=== PATIENT | female | born 1990 | race American Indian/Alaskan Native ===

== ENCOUNTER 2018-07-23 13:47 | Emergency (ER) | payer MEDICAID, OTHER ==
--- NOTE | 2018-07-23 16:05 | Emergency Department Report ---
Chief Complaint: Abdominal Pain Stated Complaint: HEADACHE/CRAMPS/DIZZY Time Seen by Provider: 07/23/18 16:03 - HPI History of Present Illness: suprapubic abd pain bilateral lower back pain N/V x 1 week dysuria no fever no CVAT on exam MSE screening note: Focused history and physical exam performed. Due to findings the following was ordered: UA, urine preg ED Disposition for MSE Condition: Stable Instructions: Abdominal Pain (ED) Referrals: KITA IVORY MD [Primary Care Provider] - 3-5 Days
[2018-07-23 16:06] VITALS: BP 124/71
[2018-07-23 16:43] LABS: Basophils % (Auto) 0.6 % (0.0-1.8); Eosinophils # (Auto) 0.1 K/mm3 (0.0-0.4); Eosinophils % (Auto) 1.7 % (0.0-4.3); Hematocrit 35.3 % (30.3-42.9); Hemoglobin 11.6 gm/dl (10.1-14.3); Lymphocytes # (Auto) 1.7 K/mm3 (1.2-5.4); Lymphocytes % (Auto) 22.7 % (13.4-35.0); Mean Corpuscular HGB Conc 33 % (30-34); Mean Corpuscular Volume 87 fl (79-97); Monocytes # (Auto) 0.4 K/mm3 (0.0-0.8); Monocytes % (Auto) 5.6 % (0.0-7.3); Platelet Count 260 K/mm3 (140-440); Red Blood Count 4.05 M/mm3 (3.65-5.03); Red Cell Distribution Width 13.8 % (13.2-15.2)
[2018-07-23 16:51] LABS: Bacteria,Urine 1+ /HPF (Negative); Bilirubin,Urine NEG (Negative); Blood,Urine NEG (Negative); Color,Urine Yellow (Yellow); Mucus,Urine 2+ /HPF; Protein,Urine <15 mg/dL mg/dL (Negative)
[2018-07-23 16:52] LABS: Alanine Aminotransferase 24 units/L (7-56); Albumin 4.4 g/dL (3.9-5); BUN/Creatinine Ratio 23; Blood Urea Nitrogen 16 mg/dL (7-17); Calcium 8.9 mg/dL (8.4-10.2); Hemolysis Index 5
[2018-07-23 16:57] LABS: HCG Qualitative,Urine Negative (Negative)
--- NOTE | 2018-07-23 17:25 | Emergency Department Report ---
ED Abdominal Pain HPI - General Chief Complaint: Abdominal Pain Stated Complaint: HEADACHE/CRAMPS/DIZZY Time Seen by Provider: 07/23/18 16:03 Source: patient Mode of arrival: Ambulatory Limitations: No Limitations - History of Present Illness Initial Comments: This is a 28-year-old -[place] female who presents with diffuse abdominal cramping, sharp back pain, and dysuria x 2 weeks. Patient reports discomfort with urination with minimal output. She denies urinary frequency, urgency, vaginal discharge or vaginal bleeding. MD Complaint: abdominal pain Onset/Timin -: week(s) Location: diffuse Radiation: bilateral flank Migration to: no migration Severity: moderate Severity scale (0 -10): 6 Quality: cramping Consistency: intermittent Improves With: nothing Worsens With: other (urination) Associated Symptoms: dysuria. denies: nausea, vomiting, diarrhea, fever, chills, constipation, hematemesis, hematochezia, melena, hematuria, anorexia, syncope Treatments Prior to Arrival: NSAIDs - Related Data LMP Date: 05/26/18 Previous Rx's Medication Instructions Recorded Last Taken Type HYDROcodone/APAP 5-325 [[place] 1 each PO Q6HR PRN #12 tablet 11/15/15 Unknown Rx 5/325] Sulfamethoxazole/Trimethoprim 1 each PO BID #20 tablet 11/15/15 Unknown Rx [Bactrim DS TAB] Phenazopyridine [Pyridium] 200 mg PO TID #6 tab 07/23/18 Unknown Rx Sulfamethoxazole/Trimethoprim 1 each PO BID #6 tablet 07/23/18 Unknown Rx [Bactrim DS TAB] Allergies Allergy/AdvReac Type Severity Reaction Status Date / Time No Known Allergies Allergy Unverified 07/23/18 13:49 ED Review of Systems ROS: Stated complaint: HEADACHE/CRAMPS/DIZZY Other details as noted in HPI Constitutional: denies: chills, fever Respiratory: denies: cough, shortness of breath, wheezing Cardiovascular: denies: chest pain, palpitations Gastrointestinal: abdominal pain. denies: nausea, diarrhea Genitourinary: dysuria. denies: urgency, discharge Musculoskeletal: back pain (bilateral flank pain). denies: joint swelling, arthralgia Skin: denies: rash, lesions Neurological: denies: headache, weakness, paresthesias Psychiatric: denies: anxiety, depression ED Past Medical Hx - Past Medical History Previous Medical History?: Yes Hx Hypertension: No Hx Renal Disease: No Hx Seizures: Yes (AT AGE 4YRS-NEVER BEEN ON ANY MEDS) Hx Asthma: No Hx HIV: No Additional medical history: constipation - Surgical History Past Surgical History?: Yes Additional Surgical History: R hand surgery - Social History Smoking Status: Current Every Day Smoker Substance Use Type: Alcohol - Medications Home Medications: Home Medications Medication Instructions Recorded Confirmed Last Taken Type HYDROcodone/APAP 5-325 [[place] 1 each PO Q6HR PRN #12 tablet 11/15/15 Unknown Rx 5/325] Sulfamethoxazole/Trimethoprim 1 each PO BID #20 tablet 11/15/15 Unknown Rx [Bactrim DS TAB] Phenazopyridine [Pyridium] 200 mg PO TID #6 tab 07/23/18 Unknown Rx Sulfamethoxazole/Trimethoprim 1 each PO BID #6 tablet 07/23/18 Unknown Rx [Bactrim DS TAB] ED Physical Exam - General Limitations: No Limitations General appearance: alert, in no apparent distress - Respiratory Respiratory exam: Present: normal lung sounds bilaterally. Absent: respiratory distress - Cardiovascular Cardiovascular Exam: Present: regular rate, normal rhythm. Absent: systolic murmur, diastolic murmur, rubs, gallop - GI/Abdominal GI/Abdominal exam: Present: soft, normal bowel sounds. Absent: distended, tenderness, guarding, rebound, rigid, organomegaly, mass, bruit, pulsatile mass, hernia - Back Exam Back exam: Present: full ROM, CVA tenderness (R). Absent: CVA tenderness (L), muscle spasm, paraspinal tenderness, vertebral tenderness, rash noted - Neurological Exam Neurological exam: Present: alert, oriented X3, normal gait - Psychiatric Psychiatric exam: Present: normal affect, normal mood - Skin Skin exam: Present: warm, dry, intact, normal color. Absent: rash ED Course Vital Signs 07/23/18 16:04 Temperature 98.8 F Pulse Rate 79 Respiratory 16 Rate Blood Pressure 124/71 O2 Sat by Pulse 98 Oximetry ED Medical Decision Making - Lab Data Result diagrams: 07/23/18 16:15 07/23/18 16:15 Lab Results 07/23/18 07/23/18 07/23/18 Range/Units 16:15 16:15 16:15 WBC 7.5 (4.5-11.0) K/mm3 RBC 4.05 (3.65-5.03) M/mm3 Hgb 11.6 (10.1-14.3) gm/dl Hct 35.3 (30.3-42.9) % MCV 87 (79-97) fl MCH 29 (28-32) pg MCHC 33 (30-34) % RDW 13.8 (13.2-15.2) % Plt Count 260 (140-440) K/mm3 Lymph % (Auto) 22.7 (13.4-35.0) % [place] % (Auto) 5.6 (0.0-7.3) % Eos % (Auto) 1.7 (0.0-4.3) % Baso % (Auto) 0.6 (0.0-1.8) % Lymph # 1.7 (1.2-5.4) K/mm3 Riley # 0.4 (0.0-0.8) K/mm3 Eos # 0.1 (0.0-0.4) K/mm3 Baso # 0.0 (0.0-0.1) K/mm3 Seg Neutrophils % 69.4 (40.0-70.0) % Seg Neutrophils # 5.2 (1.8-7.7) K/mm3 Sodium 139 (137-145) mmol/L Potassium 3.8 (3.6-5.0) mmol/L Chloride 101.3 (98-107) mmol/L Carbon Dioxide 26 (22-30) mmol/L Anion [place] 16 mmol/L BUN 16 (7-17) mg/dL Creatinine 0.7 (0.7-1.2) mg/dL Estimated GFR > 60 ml/min BUN/Creatinine Ratio 23 % Glucose 111 H (65-100) mg/dL Calcium 8.9 (8.4-10.2) mg/dL Total Bilirubin 0.60 (0.1-1.2) mg/dL AST 34 (5-40) units/L ALT 24 (7-56) units/L Alkaline Phosphatase 53 (35-129) units/L Total Protein 6.9 (6.3-8.2) g/dL Albumin 4.4 (3.9-5) g/dL Albumin/Globulin Ratio 1.8 % Urine Color Yellow (Yellow) Urine Turbidity Clear (Clear) Urine pH 5.0 (5.0-7.0) Ur Specific [place] 1.030 (1.003-1.030) Urine Protein <15 mg/dl (Negative) mg/dL Urine Glucose (UA) Neg (Negative) mg/dL Urine Ketones Neg (Negative) mg/dL Urine Blood Neg (Negative) Urine Nitrite Neg (Negative) Urine Bilirubin Neg (Negative) Urine Urobilinogen 2.0 (<2.0) mg/dL Ur Leukocyte Esterase Mod (Negative) Urine WBC (Auto) 66.0 H (0.0-6.0) /HPF Urine RBC (Auto) 2.0 (0.0-6.0) /HPF U Epithel Cells (Auto) 1.0 (0-13.0) /HPF Urine Bacteria (Auto) 1+ (Negative) /HPF Urine Mucus 2+ /HPF Urine HCG, Qual Negative (Negative) - Medical Decision Making Patient was examined by me. Vitals are normal and patient is in no acute distre ss. Obtained CBC, CMP, UA, and urine hCG. Urinalysis moderate leukocyte esterase and elevated WBCs. All of the labs are unremarkable. Patient informed of results. Acute cystitis, Start Bactrim and pyridium. Plan discussed with patient to discharge home and treat outpatient. Patient given handout with care instructions. She agrees with ER plan. Patient discharged home in stable condition. Follow up with PCP in 2-3 days. Critical care attestation.: If time is entered above; I have spent that time in minutes in the direct care of this critically ill patient, excluding procedure time. ED Disposition Clinical Impression: Dysuria, Right flank pain, Abdominal cramping Acute cystitis Qualifiers: Hematuria presence: without hematuria Qualified Code(s): N30.00 - Acute cystitis without hematuria Disposition: - TO HOME OR SELFCARE Is pt being admited?: No Does the pt Need Aspirin: No Condition: Stable Instructions: Urinary Tract Infection in Women (ED), Abdominal Pain (ED) Additional Instructions: Increase fluid intake to 1L to 2L daily. Complete full course of antibiotics as prescribed. Avoid drinking alcohol while taking antibiotics and for 24 hours after completion. Follow up with primary care provider in 2-3 days. Prescriptions: Sulfamethoxazole/Trimethoprim [Bactrim DS TAB] 1 each PO BID #6 tablet Phenazopyridine [Pyridium] 200 mg PO TID #6 tab Referrals: KITA IVORY MD [Primary Care Provider] - 3-[address] [facility] [Outside] - 3-5 Days [facility] [Outside] - 3-5 Days Forms: Work/School Release Form(ED) Time of Disposition: 17:34
== END 2018-07-23 17:45 | disposition home or self-care (01) ==
LOC: ED 13:47
DX: N30.00 Acute cystitis without hematuria (principal); F17.200 Nicotine dependence, unspecified, uncomplicated
CPT/HCPCS: 36415; 80053; 81001; 81025; 85025

== ENCOUNTER 2018-10-26 04:18 | Emergency (ER) | payer SELFPAY ==
[2018-10-26] MEDS ORDERED: ZOFRAN ODT PO ONE (07:44)
[2018-10-26] MEDS ORDERED: LEVSIN SL SL ONE (07:44)
--- NOTE | 2018-10-26 07:48 | Emergency Department Report ---
ED General Adult HPI - General Chief complaint: Chest Pain Stated complaint: CHEST PAIN Time Seen by Provider: 10/26/18 07:43 Source: patient, EMS Mode of arrival: Ambulatory Limitations: No Limitations - History of Present Illness Initial comments: 28-year-old -Citizen Of [place] female presents to the emergency room stating she has chest pain and shortness of breathing that started last night. When asked to show me where her pain is usually and she points to her epigastric area. Patient states that pain is a 5 x 10 is intermittent worse with lying down and sleeping but better when she sits up. Patient reports nausea and vomiting last vomited about 11 PM last night. Patient was not able to drink water and she feels like something is stuck in her throat. Patient does not have a primary care provider at this time. Past medical history of seizure disorder when she was young. Current medications are none no allergies to medications. -: Last night Location: abdomen (epigastric) Severity scale (0 -10): 5 Quality: sharp Consistency: intermittent Improves with: other (sitting up) Worsens with: rest, other (lying down) Associated Symptoms: cough, nausea/vomiting. denies: diaphoresis, fever/chills Treatments Prior to Arrival: none - Related Data Previous Rx's Medication Instructions Recorded Last Taken Type HYDROcodone/APAP 5-325 [[place] 1 each PO Q6HR PRN #12 tablet 11/15/15 Unknown Rx 5/325] Sulfamethoxazole/Trimethoprim 1 each PO BID #20 tablet 11/15/15 Unknown Rx [Bactrim DS TAB] Phenazopyridine [Pyridium] 200 mg PO TID #6 tab 07/23/18 Unknown Rx Sulfamethoxazole/Trimethoprim 1 each PO BID #6 tablet 07/23/18 Unknown Rx [Bactrim DS TAB] Ranitidine HCl [Zantac] 150 mg PO BID #20 tablet 10/26/18 Unknown Rx Allergies Allergy/AdvReac Type Severity Reaction Status Date / Time No Known Allergies Allergy Unverified 07/23/18 13:49 ED Review of Systems ROS: Stated complaint: CHEST PAIN Other details as noted in HPI Comment: All other systems reviewed and negative Constitutional: denies: chills, fever Eyes: denies: eye pain, eye discharge, vision change ENT: denies: ear pain, throat pain Respiratory: cough (intermittent) Cardiovascular: denies: chest pain, palpitations Endocrine: no symptoms reported Gastrointestinal: abdominal pain (the gastric), nausea, vomiting Genitourinary: denies: urgency, dysuria, discharge Musculoskeletal: denies: back pain, joint swelling, arthralgia Skin: denies: rash, lesions Neurological: denies: headache, weakness, paresthesias Psychiatric: denies: anxiety, depression ED Past Medical Hx - Past Medical History Previous Medical History?: Yes Hx Hypertension: No Hx Renal Disease: No Hx Seizures: Yes (AT AGE 4YRS-NEVER BEEN ON ANY MEDS) Hx Asthma: No Hx HIV: No Additional medical history: constipation - Surgical History Past Surgical History?: Yes Additional Surgical History: R hand surgery - Social History Smoking Status: Current Every Day Smoker Substance Use Type: None - Medications Home Medications: Home Medications Medication Instructions Recorded Confirmed Last Taken Type HYDROcodone/APAP 5-325 [[place] 1 each PO Q6HR PRN #12 tablet 11/15/15 Unknown Rx 5/325] Sulfamethoxazole/Trimethoprim 1 each PO BID #20 tablet 11/15/15 Unknown Rx [Bactrim DS TAB] Phenazopyridine [Pyridium] 200 mg PO TID #6 tab 07/23/18 Unknown Rx Sulfamethoxazole/Trimethoprim 1 each PO BID #6 tablet 07/23/18 Unknown Rx [Bactrim DS TAB] Ranitidine HCl [Zantac] 150 mg PO BID #20 tablet 10/26/18 Unknown Rx ED Physical Exam - General Limitations: No Limitations General appearance: alert, in no apparent distress - Head Head exam: Present: atraumatic, normocephalic - Eye Eye exam: Present: normal appearance, EOMI - ENT ENT exam: Present: mucous membranes moist - Neck Neck exam: Present: normal inspection - Respiratory Respiratory exam: Present: normal lung sounds bilaterally. Absent: respiratory distress, chest wall tenderness - Cardiovascular Cardiovascular Exam: Present: regular rate, normal rhythm. Absent: systolic murmur, diastolic murmur, rubs, gallop - GI/Abdominal GI/Abdominal exam: Present: soft, tenderness (epigastric), normal bowel sounds. Absent: guarding, rebound - Extremities Exam Extremities exam: Present: normal inspection - Back Exam Back exam: Present: normal inspection - Neurological Exam Neurological exam: Present: alert, oriented X3 - Psychiatric Psychiatric exam: Present: normal affect, normal mood - Skin Skin exam: Present: warm, dry, intact, normal color. Absent: rash ED Course Vital Signs 10/26/18 07:50 Temperature 99.1 F Pulse Rate 72 Respiratory 16 Rate Blood Pressure 131/69 [Left] O2 Sat by Pulse 99 Oximetry ED Medical Decision Making - Lab Data Result diagrams: 10/26/18 09:19 10/26/18 09:19 - Radiology Data Radiology results: report reviewed Patient: CHARAN BROTHERS MR#: [id number] : 1990 Acct:[id number] Age/Sex: 28 / F ADM Date: 10/26/18 Loc: ED Attending Dr: Ordering Physician: JEMMA TAMAYO MD Date of Service: 10/26/18 Procedure(s): XR chest 1V ap Accession Number(s): [id number] cc: JEMMA TAMAYO MD Fluoro Time In Minutes: PROCEDURE: XR CHEST 1V AP TECHNIQUE: Chest radiograph single view. HISTORY: Chest Pain COMPARISONS: None . FINDINGS: No mediastinal shift. Cardiac silhouette is not enlarged. No pneumothorax, effusion, or focal pulmonary opacity identified. No acute skeletal findings. Nipple jewelry noted. IMPRESSION: No acute pulmonary finding identified. This document is electronically signed by Anjum Brito MD., October 26 2018 09:03:20 AM ET Transcribed By: MB Dictated By: ANJUM BRITO MD Electronically Authenticated By: ANJUM BRITO MD Signed Date/Time: 10/26/18904 DD/ 5 TD/TT: 10/26/18535 - Medical Decision Making 28-year-old -Citizen Of [place] female exam by this provider in [facility]. Patient comes in for what she says is chest pain but actually when she showed me the pain is epigastric pain that started about 11 PM. Chest x-ray is pending patient will be given Levsin and Zofran. Awaiting results from chest x-ray. Critical care attestation.: If time is entered above; I have spent that time in minutes in the direct care of this critically ill patient, excluding procedure time. ED Disposition Clinical Impression: Epigastric abdominal pain Disposition: DC-01 TO HOME OR SELFCARE Is pt being admited?: No Does the pt Need Aspirin: No Condition: Stable Instructions: Gastroesophageal Reflux Disease (ED) Additional Instructions: Please take medication as prescribed. It is very important for him to follow up with a cytology laboratory manager if his symptoms persist or gets worse. I have listed their information below for your convenience. Chest x-ray and labs were stable. Prescriptions: Ranitidine HCl [Zantac] 150 mg PO BID #20 tablet Referrals: KITA IVORY MD [Primary Care Provider] - 3-5 Days [facility] [Provider Group] - 3-5 Days Forms: Work/School Release Form(ED)
[2018-10-26 07:51] VITALS: BP 131/69
[2018-10-26] MEDS ORDERED: TYLENOL #3 PO ONE (09:00)
--- NOTE | 2018-10-26 09:05 | XRay Report ---
PROCEDURE: XR CHEST 1V AP TECHNIQUE: Chest radiograph single view. HISTORY: Chest Pain COMPARISONS: None . FINDINGS: No mediastinal shift. Cardiac silhouette is not enlarged. No pneumothorax, effusion, or focal pulmona ry opacity identified. No acute skeletal findings. Nipple jewelry noted. IMPRESSION: No acute pulmonary finding identified. This document is electronically signed by Anjum Casiano MD., October 26 2018 09:03:20 AM ET
[2018-10-26 09:28] LABS: Basophils # (Auto) 0.1 K/mm3 (0.0-0.1); Basophils % (Auto) 1.4 % (0.0-1.8); Eosinophils # (Auto) 0.2 K/mm3 (0.0-0.4); Eosinophils % (Auto) 2.8 % (0.0-4.3); Hemoglobin 11.6 gm/dl (10.1-14.3); Lymphocytes # (Auto) 2.7 K/mm3 (1.2-5.4); Lymphocytes % (Auto) 44.6 % (13.4-35.0); Mean Corpuscular HGB Conc 34 % (30-34); Mean Corpuscular Volume 87 fl (79-97); Monocytes # (Auto) 0.5 K/mm3 (0.0-0.8); Monocytes % (Auto) 7.8 % (0.0-7.3); Platelet Count 270 K/mm3 (140-440); Red Cell Distribution Width 13.7 % (13.2-15.2)
[2018-10-26 10:03] LABS: Alanine Aminotransferase 17 units/L (7-56); BUN/Creatinine Ratio 18; Blood Urea Nitrogen 11 mg/dL (7-17); Calcium 8.6 mg/dL (8.4-10.2); Hemolysis Index 53
== END 2018-10-26 11:08 | disposition home or self-care (01) ==
LOC: ED 04:18
DX: R10.13 Epigastric pain (principal); F17.200 Nicotine dependence, unspecified, uncomplicated; Z79.899 Other long term (current) drug therapy
CPT/HCPCS: 36415; 71045; 80053; 83690; 84484; 84703; 85025; 93005; 93010; Q0162

== ENCOUNTER 2018-10-29 04:45 | Emergency (ER) | payer SELFPAY ==
--- NOTE | 2018-10-29 05:34 | XRay Report ---
PROCEDURE: XR SHOULDER 2+V LT TECHNIQUE: Left shoulder radiographs, two views. HISTORY: Shoulder pain COMPARISONS: None . FINDINGS: Fracture (s) and/or Dislocation(s): There is an anterior inferior dislocation of the humerus in rela tion to the glenoid. There is an avulsion fracture of the greater tuberosity . Joint space(s): Normal . Soft tissues: Normal . Bone mineralization: Normal . Foreign bodies: None . IMPRESSION: Anterior inferior dislocation of the humerus. There is an avulsion fracture off of the g reater tuberosity . This document is electronically signed by Lucia Warner DO., October 29 2018 05:32:41 AM ET
[2018-10-29] MEDS ORDERED: ZOFRAN ONE ×2 (06:06→10:10)
[2018-10-29] MEDS ORDERED: MORPHINE ONE (06:07)
[2018-10-29] MEDS ORDERED: MORPHINE IV ONE (06:26)
[2018-10-29] MEDS ORDERED: ZOFRAN IV ONE ×2 (06:27→10:10)
--- NOTE | 2018-10-29 06:52 | Emergency Department Report ---
ED Upper Extremity Inj HPI - General Chief Complaint: Shoulder Injury Stated Complaint: LT SHOULDER INJURY Time Seen by Provider: 10/29/18 06:25 Source: patient Mode of arrival: Ambulatory Limitations: No Limitations - History of Present Illness Initial Comments: Patient is a 28-year-old female that presents with extreme left shoulder pain. Patient states she was doing a cartwheel and felt a pop in her left shoulder. Patient states she has not been able to move her shoulder since. Patient states the pain is 10 out of 10. Patient states the pain is better with rest and worse with attempting to move the limb. Patient states the first time she has ever had this problem. She states she's never dislocated her shoulder. Patient denies past medical history. Patient denies problems with anesthesia. Patient states she's had anesthesia in the past. Patient denies chest pain or shortness of breath. Patient denies allergies. MD Complaint: Injury to:: left, shoulder -: Sudden Other Extremity Injury: Shoulder: Left Other Injuries: none Handedness: right Place: home Severity scale (0 -10): 10 Improves With: immobilization, rest Worsens With: movement of extremity Context: fall Associated Symptoms: denies other symptoms. denies: weakness, numbness, neck pain, suspects foreign body, nausea/vomiting, heard/felt popping sensat Treatments Prior to Arrival: cold therapy - Related Data Previous Rx's Medication Instructions Recorded Last Taken Type HYDROcodone/APAP 5-325 [Eden 1 each PO Q6HR PRN #12 tablet 11/15/15 Unknown Rx 5/325] Sulfamethoxazole/Trimethoprim 1 each PO BID #20 tablet 11/15/15 Unknown Rx [Bactrim DS TAB] Phenazopyridine [Pyridium] 200 mg PO TID #6 tab 07/23/18 Unknown Rx Sulfamethoxazole/Trimethoprim 1 each PO BID #6 tablet 07/23/18 Unknown Rx [Bactrim DS TAB] Ranitidine HCl [Zantac] 150 mg PO BID #20 tablet 10/26/18 Unknown Rx HYDROcodone/APAP 5-325 [Eden 1 each PO Q4HR PRN #10 tablet 10/29/18 Unknown Rx 5/325] Allergies Allergy/AdvReac Type Severity Reaction Status Date / Time No Known Allergies Allergy Unverified 07/23/18 13:49 ED Review of Systems ROS: Stated complaint: LT SHOULDER INJURY Other details as noted in HPI Constitutional: denies: chills, fever Eyes: denies: eye pain, eye discharge, vision change ENT: denies: ear pain, throat pain Respiratory: denies: cough, shortness of breath, wheezing Cardiovascular: denies: chest pain, palpitations Endocrine: no symptoms reported Gastrointestinal: denies: abdominal pain, nausea, diarrhea Genitourinary: denies: urgency, dysuria, discharge Musculoskeletal: denies: back pain, joint swelling, arthralgia Skin: denies: rash, lesions Neurological: denies: headache, weakness, paresthesias Psychiatric: denies: anxiety, depression Hematological/Lymphatic: denies: easy bleeding, easy bruising ED Past Medical Hx - Past Medical History Previous Medical History?: Yes Hx Hypertension: No Hx Renal Disease: No Hx Seizures: Yes (AT AGE 4YRS-NEVER BEEN ON ANY MEDS) Hx Asthma: No Hx HIV: No Additional medical history: constipation - Surgical History Past Surgical History?: Yes Additional Surgical History: R hand surgery - Family History Family history: no significant - Social History Smoking Status: Current Every Day Smoker Substance Use Type: Alcohol - Medications Home Medications: Home Medications Medication Instructions Recorded Confirmed Last Taken Type HYDROcodone/APAP 5-325 [Eden 1 each PO Q6HR PRN #12 tablet 11/15/15 Unknown Rx 5/325] Sulfamethoxazole/Trimethoprim 1 each PO BID #20 tablet 11/15/15 Unknown Rx [Bactrim DS TAB] Phenazopyridine [Pyridium] 200 mg PO TID #6 tab 07/23/18 Unknown Rx Sulfamethoxazole/Trimethoprim 1 each PO BID #6 tablet 07/23/18 Unknown Rx [Bactrim DS TAB] Ranitidine HCl [Zantac] 150 mg PO BID #20 tablet 10/26/18 Unknown Rx HYDROcodone/APAP 5-325 [Eden 1 each PO Q4HR PRN #10 tablet 10/29/18 Unknown Rx 5/325] ED Physical Exam - General Limitations: No Limitations General appearance: alert, in no apparent distress - Head Head exam: Present: atraumatic, normocephalic - Eye Eye exam: Present: normal appearance - ENT ENT exam: Present: mucous membranes moist - Neck Neck exam: Present: normal inspection - Respiratory Respiratory exam: Present: normal lung sounds bilaterally. Absent: respiratory distress - Cardiovascular Cardiovascular Exam: Present: regular rate, normal rhythm. Absent: systolic murmur, diastolic murmur, rubs, gallop - GI/Abdominal GI/Abdominal exam: Present: soft, normal bowel sounds. Absent: distended, tenderness, guarding, rebound - Rectal Rectal exam: Present: deferred - Extremities Exam Extremities exam: Present: normal inspection (except for left shoulder appears to be dislocated.) - Back Exam Back exam: Present: normal inspection - Neurological Exam Neurological exam: Present: alert, oriented X3 - Psychiatric Psychiatric exam: Present: normal affect, normal mood - Skin Skin exam: Present: warm, dry, intact, normal color. Absent: rash ED Course Vital Signs 10/29/18 10/29/18 10/29/18 04:45 05:19 05:26 Temperature 98 F Temperature [ Pre-Procedure] Pulse Rate 93 H 92 H Pulse Rate [ Intra-Procedure ] Pulse Rate [ Post-Procedure] Pulse Rate [Pre -Procedure] Respiratory 18 16 20 Rate Respiratory Rate [Intra- Procedure] Respiratory Rate [Post- Procedure] Respiratory Rate [Pre- Procedure] Blood Pressure 97/62 Blood Pressure [Intra- Procedure] Blood Pressure [Post-Procedure ] Blood Pressure [Pre-Procedure] O2 Sat by Pulse 98 99 Oximetry O2 Sat by Pulse Oximetry [ Intra-Procedure ] O2 Sat by Pulse Oximetry [Post -Procedure] 10/29/18 10/29/18 10/29/18 05:27 05:29 05:31 Temperature Temperature [ Pre-Procedure] Pulse Rate 95 H 98 H 91 H Pulse Rate [ Intra-Procedure ] Pulse Rate [ Post-Procedure] Pulse Rate [Pre -Procedure] Respiratory 22 13 16 Rate Respiratory Rate [Intra- Procedure] Respiratory Rate [Post- Procedure] Respiratory Rate [Pre- Procedure] Blood Pressure Blood Pressure [Intra- Procedure] Blood Pressure [Post-Procedure ] Blood Pressure [Pre-Procedure] O2 Sat by Pulse 94 95 96 Oximetry O2 Sat by Pulse Oximetry [ Intra-Procedure ] O2 Sat by Pulse Oximetry [Post -Procedure] 10/29/18 10/29/18 10/29/18 05:33 05:35 05:37 Temperature Temperature [ Pre-Procedure] Pulse Rate 92 H 90 91 H Pulse Rate [ Intra-Procedure ] Pulse Rate [ Post-Procedure] Pulse Rate [Pre -Procedure] Respiratory 21 26 H 21 Rate Respiratory Rate [Intra- Procedure] Respiratory Rate [Post- Procedure] Respiratory Rate [Pre- Procedure] Blood Pressure Blood Pressure [Intra- Procedure] Blood Pressure [Post-Procedure ] Blood Pressure [Pre-Procedure] O2 Sat by Pulse 96 97 97 Oximetry O2 Sat by Pulse Oximetry [ Intra-Procedure ] O2 Sat by Pulse Oximetry [Post -Procedure] 10/29/18 10/29/18 10/29/18 05:39 05:41 05:43 Temperature Temperature [ Pre-Procedure] Pulse Rate 86 91 H 90 Pulse Rate [ Intra-Procedure ] Pulse Rate [ Post-Procedure] Pulse Rate [Pre -Procedure] Respiratory 33 H 26 H 25 H Rate Respiratory Rate [Intra- Procedure] Respiratory Rate [Post- Procedure] Respiratory Rate [Pre- Procedure] Blood Pressure Blood Pressure [Intra- Procedure] Blood Pressure [Post-Procedure ] Blood Pressure [Pre-Procedure] O2 Sat by Pulse 98 98 96 Oximetry O2 Sat by Pulse Oximetry [ Intra-Procedure ] O2 Sat by Pulse Oximetry [Post -Procedure] 10/29/18 10/29/18 10/29/18 05:45 05:47 05:49 Temperature Temperature [ Pre-Procedure] Pulse Rate 94 H 91 H 92 H Pulse Rate [ Intra-Procedure ] Pulse Rate [ Post-Procedure] Pulse Rate [Pre -Procedure] Respiratory 26 H 18 20 Rate Respiratory Rate [Intra- Procedure] Respiratory Rate [Post- Procedure] Respiratory Rate [Pre- Procedure] Blood Pressure Blood Pressure [Intra- Procedure] Blood Pressure [Post-Procedure ] Blood Pressure [Pre-Procedure] O2 Sat by Pulse 97 96 95 Oximetry O2 Sat by Pulse Oximetry [ Intra-Procedure ] O2 Sat by Pulse Oximetry [Post -Procedure] 10/29/18 10/29/18 10/29/18 05:51 05:53 05:55 Temperature Temperature [ Pre-Procedure] Pulse Rate 93 H 91 H 88 Pulse Rate [ Intra-Procedure ] Pulse Rate [ Post-Procedure] Pulse Rate [Pre -Procedure] Respiratory 20 24 26 H Rate Respiratory Rate [Intra- Procedure] Respiratory Rate [Post- Procedure] Respiratory Rate [Pre- Procedure] Blood Pressure Blood Pressure [Intra- Procedure] Blood Pressure [Post-Procedure ] Blood Pressure [Pre-Procedure] O2 Sat by Pulse 97 98 98 Oximetry O2 Sat by Pulse Oximetry [ Intra-Procedure ] O2 Sat by Pulse Oximetry [Post -Procedure] 10/29/18 10/29/18 10/29/18 05:57 05:59 06:01 Temperature Temperature [ Pre-Procedure] Pulse Rate 87 88 92 H Pulse Rate [ Intra-Procedure ] Pulse Rate [ Post-Procedure] Pulse Rate [Pre -Procedure] Respiratory 24 23 20 Rate Respiratory Rate [Intra- Procedure] Respiratory Rate [Post- Procedure] Respiratory Rate [Pre- Procedure] Blood Pressure Blood Pressure [Intra- Procedure] Blood Pressure [Post-Procedure ] Blood Pressure [Pre-Procedure] O2 Sat by Pulse 95 95 97 Oximetry O2 Sat by Pulse Oximetry [ Intra-Procedure ] O2 Sat by Pulse Oximetry [Post -Procedure] 10/29/18 10/29/18 10/29/18 06:03 06:05 06:07 Temperature Temperature [ Pre-Procedure] Pulse Rate 94 H 91 H 93 H Pulse Rate [ Intra-Procedure ] Pulse Rate [ Post-Procedure] Pulse Rate [Pre -Procedure] Respiratory 30 H 23 22 Rate Respiratory Rate [Intra- Procedure] Respiratory Rate [Post- Procedure] Respiratory Rate [Pre- Procedure] Blood Pressure Blood Pressure [Intra- Procedure] Blood Pressure [Post-Procedure ] Blood Pressure [Pre-Procedure] O2 Sat by Pulse 97 96 97 Oximetry O2 Sat by Pulse Oximetry [ Intra-Procedure ] O2 Sat by Pulse Oximetry [Post -Procedure] 10/29/18 10/29/18 10/29/18 06:09 06:11 06:13 Temperature Temperature [ Pre-Procedure] Pulse Rate 88 95 H 94 H Pulse Rate [ Intra-Procedure ] Pulse Rate [ Post-Procedure] Pulse Rate [Pre -Procedure] Respiratory 18 26 H 31 H Rate Respiratory Rate [Intra- Procedure] Respiratory Rate [Post- Procedure] Respiratory Rate [Pre- Procedure] Blood Pressure Blood Pressure [Intra- Procedure] Blood Pressure [Post-Procedure ] Blood Pressure [Pre-Procedure] O2 Sat by Pulse 97 96 98 Oximetry O2 Sat by Pulse Oximetry [ Intra-Procedure ] O2 Sat by Pulse Oximetry [Post -Procedure] 10/29/18 10/29/18 10/29/18 06:23 06:27 06:31 Temperature Temperature [ Pre-Procedure] Pulse Rate 90 89 Pulse Rate [ Intra-Procedure ] Pulse Rate [ Post-Procedure] Pulse Rate [Pre -Procedure] Respiratory 22 17 23 Rate Respiratory Rate [Intra- Procedure] Respiratory Rate [Post- Procedure] Respiratory Rate [Pre- Procedure] Blood Pressure 118/78 118/78 Blood Pressure [Intra- Procedure] Blood Pressure [Post-Procedure ] Blood Pressure [Pre-Procedure] O2 Sat by Pulse 97 97 Oximetry O2 Sat by Pulse Oximetry [ Intra-Procedure ] O2 Sat by Pulse Oximetry [Post -Procedure] 10/29/18 10/29/18 10/29/18 06:45 07:01 07:15 Temperature Temperature [ Pre-Procedure] Pulse Rate 90 88 86 Pulse Rate [ Intra-Procedure ] Pulse Rate [ Post-Procedure] Pulse Rate [Pre -Procedure] Respiratory 19 17 17 Rate Respiratory Rate [Intra- Procedure] Respiratory Rate [Post- Procedure] Respiratory Rate [Pre- Procedure] Blood Pressure 118/78 118/78 118/78 Blood Pressure [Intra- Procedure] Blood Pressure [Post-Procedure ] Blood Pressure [Pre-Procedure] O2 Sat by Pulse 99 97 97 Oximetry O2 Sat by Pulse Oximetry [ Intra-Procedure ] O2 Sat by Pulse Oximetry [Post -Procedure] 10/29/18 10/29/18 10/29/18 07:31 07:45 08:01 Temperature Temperature [ Pre-Procedure] Pulse Rate 89 89 Pulse Rate [ Intra-Procedure ] Pulse Rate [ Post-Procedure] Pulse Rate [Pre -Procedure] Respiratory 19 17 20 Rate Respiratory Rate [Intra- Procedure] Respiratory Rate [Post- Procedure] Respiratory Rate [Pre- Procedure] Blood Pressure 118/78 118/78 118/78 Blood Pressure [Intra- Procedure] Blood Pressure [Post-Procedure ] Blood Pressure [Pre-Procedure] O2 Sat by Pulse 96 97 97 Oximetry O2 Sat by Pulse Oximetry [ Intra-Procedure ] O2 Sat by Pulse Oximetry [Post -Procedure] 10/29/18 10/29/18 10/29/18 08:15 08:31 08:38 Temperature Temperature [ 97.9 F Pre-Procedure] Pulse Rate 86 88 Pulse Rate [ Intra-Procedure ] Pulse Rate [ Post-Procedure] Pulse Rate [Pre 89 -Procedure] Respiratory 14 18 Rate Respiratory Rate [Intra- Procedure] Respiratory Rate [Post- Procedure] Respiratory 20 Rate [Pre- Procedure] Blood Pressure 121/85 117/61 Blood Pressure [Intra- Procedure] Blood Pressure [Post-Procedure ] Blood Pressure 114/73 [Pre-Procedure] O2 Sat by Pulse 98 96 Oximetry O2 Sat by Pulse Oximetry [ Intra-Procedure ] O2 Sat by Pulse Oximetry [Post -Procedure] 10/29/18 10/29/18 10/29/18 08:40 08:45 08:50 Temperature Temperature [ Pre-Procedure] Pulse Rate 73 Pulse Rate [ 85 80 Intra-Procedure ] Pulse Rate [ 78 Post-Procedure] Pulse Rate [Pre -Procedure] Respiratory 18 Rate Respiratory 18 16 Rate [Intra- Procedure] Respiratory 18 Rate [Post- Procedure] Respiratory Rate [Pre- Procedure] Blood Pressure 107/73 Blood Pressure 107/73 117/82 [Intra- Procedure] Blood Pressure 122/86 [Post-Procedure ] Blood Pressure [Pre-Procedure] O2 Sat by Pulse 98 Oximetry O2 Sat by Pulse 98 98 Oximetry [ Intra-Procedure ] O2 Sat by Pulse Oximetry [Post -Procedure] 10/29/18 10/29/18 10/29/18 09:00 09:15 09:30 Temperature Temperature [ Pre-Procedure] Pulse Rate 81 Pulse Rate [ Intra-Procedure ] Pulse Rate [ 80 85 86 Post-Procedure] Pulse Rate [Pre -Procedure] Respiratory 23 Rate Respiratory Rate [Intra- Procedure] Respiratory 18 18 18 Rate [Post- Procedure] Respiratory Rate [Pre- Procedure] Blood Pressure 138/72 127/81 118/84 Blood Pressure [Intra- Procedure] Blood Pressure 138/72 111/77 120/82 [Post-Procedure ] Blood Pressure [Pre-Procedure] O2 Sat by Pulse 100 98 98 Oximetry O2 Sat by Pulse Oximetry [ Intra-Procedure ] O2 Sat by Pulse Oximetry [Post -Procedure] 10/29/18 10/29/18 10/29/18 09:45 10:00 10:15 Temperature Temperature [ Pre-Procedure] Pulse Rate Pulse Rate [ Intra-Procedure ] Pulse Rate [ 82 86 90 Post-Procedure] Pulse Rate [Pre -Procedure] Respiratory Rate Respiratory Rate [Intra- Procedure] Respiratory 18 18 17 Rate [Post- Procedure] Respiratory Rate [Pre- Procedure] Blood Pressure 117/73 126/87 121/81 Blood Pressure [Intra- Procedure] Blood Pressure 117/73 121/81 129/76 [Post-Procedure ] Blood Pressure [Pre-Procedure] O2 Sat by Pulse 100 98 98 Oximetry O2 Sat by Pulse Oximetry [ Intra-Procedure ] O2 Sat by Pulse Oximetry [Post -Procedure] 10/29/18 10/29/18 10/29/18 10:30 10:45 11:00 Temperature Temperature [ Pre-Procedure] Pulse Rate Pulse Rate [ Intra-Procedure ] Pulse Rate [ 84 84 80 Post-Procedure] Pulse Rate [Pre -Procedure] Respiratory Rate Respiratory Rate [Intra- Procedure] Respiratory 18 18 17 Rate [Post- Procedure] Respiratory Rate [Pre- Procedure] Blood Pressure 120/73 111/67 113/73 Blood Pressure [Intra- Procedure] Blood Pressure 120/73 117/70 113/73 [Post-Procedure ] Blood Pressure [Pre-Procedure] O2 Sat by Pulse 93 95 94 Oximetry O2 Sat by Pulse Oximetry [ Intra-Procedure ] O2 Sat by Pulse 98 94 Oximetry [Post -Procedure] 10/29/18 10/29/18 10/29/18 11:15 11:30 11:45 Temperature Temperature [ Pre-Procedure] Pulse Rate Pulse Rate [ Intra-Procedure ] Pulse Rate [ 82 83 80 Post-Procedure] Pulse Rate [Pre -Procedure] Respiratory Rate Respiratory Rate [Intra- Procedure] Respiratory 18 18 17 Rate [Post- Procedure] Respiratory Rate [Pre- Procedure] Blood Pressure 124/84 113/73 110/70 Blood Pressure [Intra- Procedure] Blood Pressure 124/84 113/73 110/70 [Post-Procedure ] Blood Pressure [Pre-Procedure] O2 Sat by Pulse 97 96 94 Oximetry O2 Sat by Pulse Oximetry [ Intra-Procedure ] O2 Sat by Pulse 97 96 95 Oximetry [Post -Procedure] 10/29/18 10/29/18 10/29/18 12:00 12:15 12:30 Temperature Temperature [ Pre-Procedure] Pulse Rate Pulse Rate [ Intra-Procedure ] Pulse Rate [ 79 82 82 Post-Procedure] Pulse Rate [Pre -Procedure] Respiratory Rate Respiratory Rate [Intra- Procedure] Respiratory 18 18 18 Rate [Post- Procedure] Respiratory Rate [Pre- Procedure] Blood Pressure 109/71 123/73 117/70 Blood Pressure [Intra- Procedure] Blood Pressure 122/80 123/73 117/70 [Post-Procedure ] Blood Pressure [Pre-Procedure] O2 Sat by Pulse 99 96 100 Oximetry O2 Sat by Pulse Oximetry [ Intra-Procedure ] O2 Sat by Pulse 98 100 98 Oximetry [Post -Procedure] 10/29/18 10/29/18 10/29/18 12:45 13:00 13:01 Temperature Temperature [ Pre-Procedure] Pulse Rate Pulse Rate [ Intra-Procedure ] Pulse Rate [ 82 82 Post-Procedure] Pulse Rate [Pre -Procedure] Respiratory Rate Respiratory Rate [Intra- Procedure] Respiratory 18 18 Rate [Post- Procedure] Respiratory Rate [Pre- Procedure] Blood Pressure 116/75 117/76 Blood Pressure [Intra- Procedure] Blood Pressure 116/75 117/76 [Post-Procedure ] Blood Pressure [Pre-Procedure] O2 Sat by Pulse 96 Oximetry O2 Sat by Pulse Oximetry [ Intra-Procedure ] O2 Sat by Pulse 97 97 Oximetry [Post -Procedure] 10/29/18 10/29/18 13:15 13:30 Temperature Temperature [ Pre-Procedure] Pulse Rate Pulse Rate [ Intra-Procedure ] Pulse Rate [ 80 88 Post-Procedure] Pulse Rate [Pre -Procedure] Respiratory Rate Respiratory Rate [Intra- Procedure] Respiratory 18 18 Rate [Post- Procedure] Respiratory Rate [Pre- Procedure] Blood Pressure Blood Pressure [Intra- Procedure] Blood Pressure 118/75 120/87 [Post-Procedure ] Blood Pressure [Pre-Procedure] O2 Sat by Pulse Oximetry O2 Sat by Pulse Oximetry [ Intra-Procedure ] O2 Sat by Pulse 98 97 Oximetry [Post -Procedure] - Reevaluation(s) Reevaluation #1: I discussed moderate sedation with patient. Patient agrees with moderate sedation and shoulder reduction. We will do a serum and move forward with procedures. 10/29/18 07:00 Patient tolerated moderate sedation and shoulder reduction without complications. Patient's vital signs were monitored throughout the procedure and were stable. See procedure notes. Patient placed in sling immediately after procedure. 10/29/18 08:52 Patient's vital signs are stable. Patient answering questions. Patient is asleep but easily arousable. 10/29/18 09:34 She is complaining of nausea. Patient was given 4 mg Zofran. Patient is awake alert and oriented 3. 10/29/18 10:09 Patient resting in bed. Patient answering questions properly. Patient states she is still feeling a little bit tired and would like to sleep a little bit. 10/29/18 11:06 Patient able to her without problems. Patient tolerated walking. Patient is answering all questions properly. Discussed all results with patient. Patient is stable for discharge. Patient will be discharged home.. Patient agrees to plan of care.. Patient given discharge instructions. Patient voiced understanding of discharge instructions. 10/29/18 13:16 - Consultations Consultation #1: Discussed case with Dr. Hyde. Dr. Hyde does not recommend any other splinting except for a sling. Dr. Hyde states he will see the patient in for the patient to call his office to set up an appointment. Patient given . 10/29/18 12:54 - Moderate Sedation Indications: fracture/dislocation redu ASA Class: I Mallampati Airway Score: 1 Time of Last PO Intake: 01:00 Preparation: quality assurance monitor body applied, pulse oximeter, capnometry used, supplemental O2 applied, suction/airway equipment at bedside, IV secured IV Propofol Dose (mgs): 50 Complications: none Patient Tolerated Procedure: well, no complications - Orthopedic Fracture Reduction Fracture #1 Consent Obtained: verbal consent, written consent, emergent situation Time Out Performed: Yes Side: left Analgesia: moderate sedation Technique: direct manipulation Post Reduction X-rays Demonstrate: anatomical reduction Post-Reduction Neuro Exam: intact Post-Reduction Vascular Exam: intact Splint Applied: Yes Patient Tolerated Procedure: well, no complications - Orthopedic Joint Reduction Joint #1 Consent Obtained: verbal consent, written consent, emergent situation Time Out Performed: Yes Side: left Joint Reduction Location: shoulder Analgesia: moderate sedation Shoulder Technique Used (if applicable): external rotation Technique Used: traction/counter-traction Post-Reduction Neuro Exam: intact Post-Reduction Vascular Exam: intact Post Reduction X-Ray Obtained: Yes Post Reduction X-Ray Results: reduced Splint Applied: Yes Patient Tolerated Procedure: well ED Medical Decision Making - Radiology Data Radiology results: report reviewed, image reviewed interpreted by me: First x-ray shows inferior anterior dislocation with an avulsion fracture. Second x-ray, post reduction x-ray, shows good reduction and nondisplaced fracture PROCEDURE: XR SHOULDER 2+V LT TECHNIQUE: Left shoulder radiographs, two views. HISTORY: Shoulder pain COMPARISONS: None . FINDINGS: Fracture (s) and/or Dislocation(s): There is an anterior inferior dislocation of the humerus in relation to the glenoid. There is an avulsion fracture of the greater tuberosity . Joint space(s): Normal . Soft tissues: Normal . Bone mineralization: Normal . Foreign bodies: None . IMPRESSION: Anterior inferior dislocation of the humerus. There is an avulsion fracture off of the greater tuberosity . This document is electronically signed by Lucia Warner DO., October 29 2018 05:32:41 AM ET LEFT SHOULDER, ONE VIEW History: Shoulder reduction. Findings: The anterior, inferior dislocation of the left glenohumeral joint has been reduced since 0503 hrs. Alignment is anatomic at the joint. A nondisplaced fracture is identified involving the lateral humeral head. There appear to be a few small intra-articular bony fragments in the superior joint space and inferior joint space. Impression: Successful reduction of the left shoulder dislocation. Proximal humeral fracture as described above. - Medical Decision Making Patient is a 28-year-old female that presents emergency room for left shoulder pain. Patient on the have a humerus fracture and a shoulder dislocation. Patient had moderate sedation for shoulder reduction and fracture reduction. Post procedure film show a good reduction with adequate reduction of the fracture site. Patient's pain improved. Patient was given pain medications. Patient will need to follow-up with Dr. Hyde as an outpatient. Patient was placed in a splint immediately postprocedure. Patient monitored for multiple hours in order to allow the patient to return to baseline. Patient returned to baseline and is stable for discharge. Patient given discharge instructions. - Differential Diagnosis shoulder pain. Shoulder dislocation. Shoulder fracture. Critical Care Time: Yes Critical care attestation.: If time is entered above; I have spent that time in minutes in the direct care of this critically ill patient, excluding procedure time. Critical Care Time: 65 minutes ED Disposition Clinical Impression: Shoulder pain Qualifiers: Chronicity: acute Laterality: left Qualified Code(s): M25.512 - Pain in left shoulder Shoulder dislocation Qualifiers: Encounter type: initial encounter Laterality: left Qualified Code(s): S43.005A - Unspecified dislocation of left shoulder joint, initial encounter Humeral fracture Qualifiers: Encounter type: initial encounter Humerus Location: greater tuberosity Fracture type: closed Fracture alignment: nondisplaced Laterality: left Qualified Code(s): S42.255A - Nondisplaced fracture of greater tuberosity of left humerus, initial encounter for closed fracture Disposition: DC-01 TO HOME OR SELFCARE Is pt being admited?: No Does the pt Need Aspirin: No Condition: Stable Instructions: Arm Fracture in Adults (ED), Shoulder Dislocation (ED), Moderate Sedation (ED) Additional Instructions: Patient to follow-up with primary care in 2-3 days. Patient to follow-up with orthopedist as soon as possible. Patient to keep left arm and sling until cleared by orthopedist. Patient to avoid strenuous activity until cleared by orthopedist. Patient to take Tylenol or ibuprofen when necessary for pain. Patient to return to ER if condition worsens. Patient to take meds as directed. Patient to increase water. Patient to rest. Patient to continue all meds. Prescriptions: HYDROcodone/APAP 5-325 [Eden 5/325] 1 each PO Q4HR PRN #10 tablet PRN Reason: Pain Referrals: [facility] MD ELIZABETH [Primary Care Provider] - 2-3 Days NITESH HYDE MD [Staff Physician] - 2-3 Days Time of Disposition: 13:18
[2018-10-29] MEDS ORDERED: DIPRIVAN 10 MG/ML IV ONE ×3 (08:06→10:09)
[2018-10-29] MEDS ORDERED: NACL 0.9% 1000 ML 1,000 ML ONE (08:08)
--- NOTE | 2018-10-29 09:23 | XRay Report ---
LEFT SHOULDER, ONE VIEW History: Shoulder reduction. Findings: The anterior, inferior dislocation of the left glenohumeral joint has been reduced since 0503 hrs. Alignment is anatomic at the joint. A nondisplaced fracture is identified involving the lateral humeral head. There appear to be a few small intra-articular bony fragments in the superior joint space and inferior joint space. Impression: Successful reduction of the left shoulder dislocation. Proximal humeral fracture as described above.
[2018-10-29] MEDS ORDERED: NACL 0.9% 1000 ML 1,000 ML IV ONE (09:55)
[2018-10-29 13:51] VITALS: BP 120/87
== END 2018-10-29 13:40 | disposition home or self-care (01) ==
LOC: ED 04:45
DX: S42.255A Nondisplaced fracture of greater tuberosity of left humerus, initial encounter for closed fracture (principal); S43.005A Unspecified dislocation of left shoulder joint, initial encounter; F17.200 Nicotine dependence, unspecified, uncomplicated; X58.XXXA Exposure to other specified factors, initial encounter; Y93.89 Activity, other specified; Y92.009 Unspecified place in unspecified non-institutional (private) residence as the place of occurrence of the external cause; Y99.8 Other external cause status
CPT/HCPCS: 23650; 36415; 73020; 73030; 84703; 94760; 96374; 96375; 96376; 99284; J2270; J2405; J2704; J7030

== ENCOUNTER 2019-04-22 17:27 | Emergency (ER) | payer MEDICAID ==
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
[2019-04-22 17:41] VITALS: BP 150/100
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
== END 2019-04-22 18:32 | disposition left against medical advice (07) ==
LOC: ED 17:27
DX: S80.211A Abrasion, right knee, initial encounter (principal); Y04.0XXA Assault by unarmed brawl or fight, initial encounter; Y93.89 Activity, other specified; Y92.89 Other specified places as the place of occurrence of the external cause; Y99.8 Other external cause status
CPT/HCPCS: 99281

== ENCOUNTER 2019-06-14 07:51 | Emergency (ER) | payer MEDICAID ==
[2019-06-14 08:20] VITALS: BP 116/48
--- NOTE | 2019-06-14 08:29 | Emergency Department Report ---
Chief Complaint: Upper Respiratory Infection Stated Complaint: FLU SYM Time Seen by Provider: 06/14/19 08:23 - HPI History of Present Illness: 29 y/o female comes in for N/V body aches chills, sweats nasal congestion and diarrhea times 1 week. Has only taken mucinex JOSE. PMH SZ on no meds. Denies any fever. Appetite good. - Exam Vital Signs: Vital Signs 06/14/19 08:18 Temperature 98.2 F Pulse Rate 109 H Respiratory 20 Rate Blood Pressure 116/48 O2 Sat by Pulse 96 Oximetry Physical Exam: 29 y/o female comes in for N/V body aches chills, sweats nasal congestion and diarrhea times 1 week. Has only taken mucinex JOSE. PMH SZ on no meds. Denies any fever. Axo times 3 NAD non toxic HEENT: oral moist patent tonsil are normal, Nares are patent but enlarged, Neck FROM no tenderness Chest CTAB Heart RRRR abd soft non tender ambulatory without difficulties. MSE screening note: Focused history and physical exam performed. Due to findings the following was ordered: 29 y/o female comes in for N/V body aches chills, sweats nasal congestion and diarrhea times 1 week. Has only taken mucinex JOSE. PMH SZ on no meds. Denies any fever. Recommend overt the clartin 10mg Robitussin DM Flonas Ib and Madina root or fresh madina s ED Disposition for MSE Disposition: MED SCREENING EXAM-LEFT Condition: Stable Additional Instructions: Recommend over the counter clartin 10mg Robitussin DM Flonas and Ibuprofen and Madina root or fresh madina
== END 2019-06-14 08:25 | disposition left against medical advice (07) ==
LOC: ED 07:51
DX: R09.89 Other specified symptoms and signs involving the circulatory and respiratory systems (principal); R19.7 Diarrhea, unspecified
CPT/HCPCS: 99281

== ENCOUNTER 2019-07-06 17:07 | Emergency (ER) | payer MEDICAID ==
--- NOTE | 2019-07-06 20:44 | Event Note ---
ED Screening Note Date of service: 07/06/19 Time: 20:43 ED Screening Note: pt here for evaluation and med clearnace for [facility] placement etoh abuse This initial assessment/diagnostic orders/clinical plan/treatment(s) is/are subject to change based on patients health status, clinical progression and re- assessment by fellow clinical providers in the ED. Further treatment and workup at subsequent clinical providers discretion. Patient/guardian urged not to elope from the ED as their condition may be serious if not clinically assessed and managed. Initial orders include: labs mAIN EVAL
[2019-07-06 21:59] LABS: Basophils # (Auto) 0.1 K/mm3 (0.0-0.1); Eosinophils # (Auto) 0.1 K/mm3 (0.0-0.4); Eosinophils % (Auto) 1.8 % (0.0-4.3); Hemoglobin 12.1 gm/dl (10.1-14.3); Lymphocytes % (Auto) 37.3 % (13.4-35.0); Mean Corpuscular HGB Conc 33 % (30-34); Mean Corpuscular Volume 87 fl (79-97); Monocytes # (Auto) 0.4 K/mm3 (0.0-0.8); Monocytes % (Auto) 7.3 % (0.0-7.3); Platelet Count 233 K/mm3 (140-440); Red Blood Count 4.24 M/mm3 (3.65-5.03); Red Cell Distribution Width 13.5 % (13.2-15.2)
[2019-07-06 22:18] LABS: BUN/Creatinine Ratio 17; Blood Urea Nitrogen 12 mg/dL (7-17); Calcium 9.9 mg/dL (8.4-10.2); Hemolysis Index 5
[2019-07-06 22:48] LABS: Amphetamine Screen,Urine PRESUMPTIVE NEGATIVE; Benzodiazepines Screen,Urine PRESUMPTIVE NEGATIVE; Cannabinoid Screen,Urine PRESUMPTIVE NEGATIVE; Cocaine Screen,Urine PRESUMPTIVE NEGATIVE; Methadone Screen,Urine PRESUMPTIVE NEGATIVE; Opiate Screen,Urine PRESUMPTIVE NEGATIVE
[2019-07-06 22:51] LABS: Bilirubin,Urine NEG (Negative); Blood,Urine NEG (Negative); Color,Urine Yellow (Yellow); Mucus,Urine 1+ /HPF; Protein,Urine <15 mg/dL mg/dL (Negative)
[2019-07-06 23:04] VITALS: BP 143/94
--- NOTE | 2019-07-06 23:10 | Emergency Department Report ---
ED Alcohol HPI - General Chief Complaint: Alcohol Stated Complaint: MEDICAL CLEARANCE Time Seen by Provider: 07/06/19 23:02 Source: patient Mode of arrival: Ambulatory Limitations: No Limitations - History of Present Illness Initial Comments: Patient is 29 years old female with no significant past medical history except for alcohol abuse and dependence. Patient presented to the ER stating that she wanted medical clearance so she can be admitted to [facility] for alcohol rehab. Patient denied any symptoms. Patient specifically denying any headache, tremor, visual hallucination or seizures. Patient stated that last drink was 3 days ago. She stated that she drinks every other day. No drug abuse. MD Complaint: alcohol dependence, desires rehab, medical clearance for det Time Since Last Drink: 3 -: days(s) Chronic Alcohol Use: Yes Previous Visits for Alcohol Intoxication?: No Recent Trauma: No Associated Symptoms: denies other symptoms Treatments Prior to Arrival: none - Related Data Previous Rx's Medication Instructions Recorded Last Taken Type HYDROcodone/APAP 5-325 [[place] 1 each PO Q6HR PRN #12 tablet 11/15/15 Unknown Rx 5/325] Sulfamethoxazole/Trimethoprim 1 each PO BID #20 tablet 11/15/15 Unknown Rx [Bactrim DS TAB] Phenazopyridine [Pyridium] 200 mg PO TID #6 tab 07/23/18 Unknown Rx Sulfamethoxazole/Trimethoprim 1 each PO BID #6 tablet 07/23/18 Unknown Rx [Bactrim DS TAB] raNITIdine HCl [Zantac] 150 mg PO BID #20 tablet 10/26/18 Unknown Rx HYDROcodone/APAP 5-325 [[place] 1 each PO Q4HR PRN #10 tablet 10/29/18 Unknown Rx 5/325] Allergies Allergy/AdvReac Type Severity Reaction Status Date / Time No Known Allergies Allergy Verified 04/22/19 17:28 ED Review of Systems ROS: Stated complaint: MEDICAL CLEARANCE Other details as noted in HPI Comment: All other systems reviewed and negative Constitutional: denies: chills, fever Respiratory: denies: cough, shortness of breath Cardiovascular: denies: chest pain Gastrointestinal: denies: abdominal pain, nausea, vomiting Musculoskeletal: denies: back pain Neurological: denies: headache, weakness, numbness, paresthesias, confusion, abnormal gait Psychiatric: denies: anxiety, depression, auditory hallucinations, visual hallucinations, homicidal thoughts, suicidal thoughts ED Past Medical Hx - Past Medical History Previous Medical History?: Yes Hx Hypertension: No Hx Renal Disease: No Hx Seizures: Yes (AT AGE 4YRS-NEVER BEEN ON ANY MEDS) Hx Psychiatric Treatment: Yes (Anxiety) Hx Asthma: No Hx HIV: No Additional medical history: constipation - Surgical History Past Surgical History?: Yes Additional Surgical History: R hand surgery - Social History Smoking Status: Current Every Day Smoker Substance Use Type: Alcohol - Medications Home Medications: Home Medications Medication Instructions Recorded Confirmed Last Taken Type HYDROcodone/APAP 5-325 [[place] 1 each PO Q6HR PRN #12 tablet 11/15/15 Unknown Rx 5/325] Sulfamethoxazole/Trimethoprim 1 each PO BID #20 tablet 11/15/15 Unknown Rx [Bactrim DS TAB] Phenazopyridine [Pyridium] 200 mg PO TID #6 tab 07/23/18 Unknown Rx Sulfamethoxazole/Trimethoprim 1 each PO BID #6 tablet 07/23/18 Unknown Rx [Bactrim DS TAB] raNITIdine HCl [Zantac] 150 mg PO BID #20 tablet 10/26/18 Unknown Rx HYDROcodone/APAP 5-325 [[place] 1 each PO Q4HR PRN #10 tablet 10/29/18 Unknown Rx 5/325] ED Physical Exam - General Limitations: No Limitations General appearance: alert, in no apparent distress - Head Head exam: Present: atraumatic, normocephalic, normal inspection - Eye Eye exam: Present: normal appearance - ENT ENT exam: Present: normal exam, normal orophraynx, mucous membranes moist - Neck Neck exam: Present: normal inspection, full ROM. Absent: tenderness, meni ngismus, lymphadenopathy, thyromegaly - Respiratory Respiratory exam: Present: normal lung sounds bilaterally - Cardiovascular Cardiovascular Exam: Present: regular rate, normal rhythm, normal heart sounds - GI/Abdominal GI/Abdominal exam: Present: soft, normal bowel sounds. Absent: distended, tenderness, guarding, rebound, rigid, organomegaly, pulsatile mass, hernia - Extremities Exam Extremities exam: Present: normal inspection, full ROM, normal capillary refill. Absent: pedal edema, calf tenderness - Back Exam Back exam: Present: normal inspection, full ROM. Absent: CVA tenderness (R), CVA tenderness (L) - Neurological Exam Neurological exam: Present: alert, oriented X3, CN II-XII intact, normal gait, reflexes normal. Absent: abnormal gait, motor sensory deficit - Psychiatric Psychiatric exam: Present: normal mood. Absent: agitated, anxious, flat affect, manic, homicidal ideation, suicidal ideation - Skin Skin exam: Present: warm, intact, normal color ED Course Vital Signs 07/06/19 07/06/19 18:03 23:03 Temperature 99.0 F 98.9 F Pulse Rate 102 H 99 H Respiratory 18 16 Rate Blood Pressure 152/99 Blood Pressure 143/94 [left arm] O2 Sat by Pulse 100 98 Oximetry ED Medical Decision Making - Lab Data Result diagrams: 07/06/19 21:40 07/06/19 21:40 - Medical Decision Making Patient is 29 years old female with no significant past medical history except for alcohol abuse and dependence. Patient presented to the ER stating that she wanted medical clearance so she can be admitted to [facility] for alcohol rehab. Patient denied any symptoms. Patient specifically denying any headache, tremor, visual hallucination or seizures. Patient stated that last drink was 3 days ago. She stated that she drinks every other day. No drug abuse. Labs reviewed and is unremarkable. Patient is medically cleared to be admitted to inpatient alcohol rehab. Critical care attestation.: If time is entered above; I have spent that time in minutes in the direct care of this critically ill patient, excluding procedure time. ED Disposition Clinical Impression: Alcohol dependence, Encounter for alcohol rehabilitation Disposition: DC-01 TO HOME OR SELFCARE Is pt being admited?: No Condition: Stable Instructions: Medical Clearance for Substance Abuse Treatment (ED) Additional Instructions: Patient is medically cleared to be admitted to inpatient alcohol rehab. Referrals: KITA IVORY MD [Primary Care Provider] - 3-5 Days
== END 2019-07-06 23:33 | disposition home or self-care (01) ==
LOC: ED 17:07
DX: F10.229 Alcohol dependence with intoxication, unspecified (principal); R56.9 Unspecified convulsions; F41.9 Anxiety disorder, unspecified; F17.200 Nicotine dependence, unspecified, uncomplicated; Z98.890 Other specified postprocedural states; Z79.899 Other long term (current) drug therapy
CPT/HCPCS: 36415; 80048; 80307; 80320; 81001; 85025; G0480

== ENCOUNTER 2019-08-31 21:01 | Emergency (ER) | payer MEDICAID ==
[2019-08-31 21:13] VITALS: BP 140/92
--- NOTE | 2019-08-31 21:59 | Emergency Department Report ---
- General Chief Complaint: Dyspnea/Respdistress Stated Complaint: TYREE Time Seen by Provider: 08/31/19 21:49 Source: patient Mode of arrival: Ambulatory Limitations: No Limitations - History of Present Illness Initial Comments: 29-year-old -[place] unemployed female with no significant past medical history presents emergency department complaining of a 5-day history waxing and waning shortness of breath associated with chest discomfort to the mid region fever sensation progressively worsening productive cough with yellowish mucus. She reports no hemoptysis no hematemesis no nausea vomiting but has began to develop some diarrhea over the last couple days. She reports no known contact with the coronavirus no rashes no medications Consistency: constant Improves With: nothing Worsens With: nothing Associated Symptoms: fever, myalgias, cough, chest pain, shortness of breath. denies: right sweats, epistaxis Treatments Prior to Arrival: none - Related Data Previous Rx's Medication Instructions Recorded Last Taken Type HYDROcodone/APAP 5-325 [[place] 1 each PO Q6HR PRN #12 tablet 11/15/15 Unknown Rx 5/325] Sulfamethoxazole/Trimethoprim 1 each PO BID #20 tablet 11/15/15 Unknown Rx [Bactrim DS TAB] Phenazopyridine [Pyridium] 200 mg PO TID #6 tab 07/23/18 Unknown Rx Sulfamethoxazole/Trimethoprim 1 each PO BID #6 tablet 07/23/18 Unknown Rx [Bactrim DS TAB] raNITIdine HCl [Zantac] 150 mg PO BID #20 tablet 10/26/18 Unknown Rx HYDROcodone/APAP 5-325 [[place] 1 each PO Q4HR PRN #10 tablet 10/29/18 Unknown Rx 5/325] Albuterol INH(or & Nicu Only) 2 puff IH QID PRN #1 inhalation 08/31/19 Unknown Rx [ProAir HFA Inhaler] Azithromycin [Zithromax] 500 mg PO QDAY #5 tablet 08/31/19 Unknown Rx guaiFENesin/CODEINE [Robitussin AC] 5 ml PO Q6H PRN #120 ml 08/31/19 Unknown Rx Allergies Allergy/AdvReac Type Severity Reaction Status Date / Time No Known Allergies Allergy Verified 04/22/19 17:28 ED Review of Systems ROS: Stated complaint: TYREE Other details as noted in HPI Comment: All other systems reviewed and negative ED Past Medical Hx - Past Medical History Hx Hypertension: No Hx Renal Disease: No Hx Seizures: Yes (AT AGE 4YRS-NEVER BEEN ON ANY MEDS) Hx Psychiatric Treatment: Yes (Anxiety) Hx Asthma: No Hx HIV: No Additional medical history: constipation - Surgical History Additional Surgical History: R hand surgery - Social History Smoking Status: Current Every Day Smoker Substance Use Type: None - Medications Home Medications: Home Medications Medication Instructions Recorded Confirmed Last Taken Type HYDROcodone/APAP 5-325 [[place] 1 each PO Q6HR PRN #12 tablet 11/15/15 Unknown Rx 5/325] Sulfamethoxazole/Trimethoprim 1 each PO BID #20 tablet 11/15/15 Unknown Rx [Bactrim DS TAB] Phenazopyridine [Pyridium] 200 mg PO TID #6 tab 07/23/18 Unknown Rx Sulfamethoxazole/Trimethoprim 1 each PO BID #6 tablet 07/23/18 Unknown Rx [Bactrim DS TAB] raNITIdine HCl [Zantac] 150 mg PO BID #20 tablet 10/26/18 Unknown Rx HYDROcodone/APAP 5-325 [[place] 1 each PO Q4HR PRN #10 tablet 10/29/18 Unknown Rx 5/325] Albuterol INH(or & Nicu Only) 2 puff IH QID PRN #1 inhalation 08/31/19 Unknown Rx [ProAir HFA Inhaler] Azithromycin [Zithromax] 500 mg PO QDAY #5 tablet 08/31/19 Unknown Rx guaiFENesin/CODEINE [Robitussin AC] 5 ml PO Q6H PRN #120 ml 08/31/19 Unknown Rx ED Physical Exam - General Limitations: No Limitations General appearance: alert, in no apparent distress - Head Head exam: Present: atraumatic, normocephalic - Eye Eye exam: Present: normal appearance, PERRL, EOMI Pupils: Present: normal accommodation - ENT ENT exam: Present: normal exam, mucous membranes moist - Neck Neck exam: Present: normal inspection - Respiratory Respiratory exam: Present: normal lung sounds bilaterally. Absent: respiratory distress, rales, rhonchi, chest wall tenderness, accessory muscle use - Cardiovascular Cardiovascular Exam: Present: regular rate, normal rhythm. Absent: systolic murmur, diastolic murmur, rubs, gallop - GI/Abdominal GI/Abdominal exam: Present: soft, normal bowel sounds - Extremities Exam Extremities exam: Present: normal inspection, full ROM - Back Exam Back exam: Present: normal inspection - Neurological Exam Neurological exam: Present: alert, oriented X3 - Psychiatric Psychiatric exam: Present: normal affect, normal mood - Skin Skin exam: Present: warm, dry, intact, normal color. Absent: rash ED Course Vital Signs 08/31/19 08/31/19 21:04 21:16 Temperature 100.0 F H 99.7 F H Pulse Rate 119 H 108 H Respiratory 20 17 Rate Blood Pressure 140/92 O2 Sat by Pulse 98 99 Oximetry ED Medical Decision Making - Radiology Data Radiology results: report reviewed No acute process - Medical Decision Making This patient presents with acute cough, most consistent with . Differential diagnosis includes . Presentation not consistent with acute bacterial pneumonia, influenza, asthma, transient airway hyperresponsiveness. Presentation not consistent with chronic causes of cough (including GERD, asthma, postnasal discharge, medication side effect, CHF, lung cancer or mass). Patient does not meet criteria for COVID-19. Doubt pneumonia, sepsis or other serious bacterial infection or acute emergent condition. Is otherwise well- appearing with acceptable vitals and reassuring physical examination and is safe to be discharged home. Patient lacks serious medical comorbidities that would require admission. Patient is nontoxic and although symptomatic otherwise safe to go home. Will provide strict return precautions and instructions on self isolation/quarantine and anticipatory guidance. Plan: Normal CXR, supportive care, reassess Ms. Huffman she remains no respiratorydistress during her hospital visit she will she was ambulated and maintain a saturation of greater than 99% heart rate was maintained less than 100 there is no wheezing no hemoptysis no productive cough during her hospital stay plan is to discharge home This patient presents with lower respiratory symptoms concerning for viral syndrome including flu. Critical care attestation.: If time is entered above; I have spent that time in minutes in the direct care of this critically ill patient, excluding procedure time. ED Disposition Clinical Impression: Bronchitis, Fever Disposition: - TO HOME OR SELFCARE Is pt being admited?: No Does the pt Need Aspirin: No Condition: Stable Instructions: Chronic Bronchitis (ED)
--- NOTE | 2019-08-31 22:14 | XRay Report ---
CHEST 2 VIEWS INDICATION / CLINICAL INFORMATION: fever, cough. COMPARISON: None available. FINDINGS: SUPPORT DEVICES: None. HEART / MEDIASTINUM: No significant abnormality. LUNGS / PLEURA: No significant pulmonary or pleural abnormality. No pneumothorax. ADDITIONAL FINDINGS: No significant additional findings. IMPRESSION: 1. No acute findings. Signer Name: Dwayne Jiménez MD Signed: 08/31/2019 10:10 PM Workstation Name: [id number]
== END 2019-08-31 23:11 | disposition home or self-care (01) ==
LOC: ED 21:01
DX: J40 Bronchitis, not specified as acute or chronic (principal); F41.9 Anxiety disorder, unspecified; F17.200 Nicotine dependence, unspecified, uncomplicated; Z79.899 Other long term (current) drug therapy; Z98.890 Other specified postprocedural states
CPT/HCPCS: 71046

== ENCOUNTER 2019-10-19 11:01 | Emergency (ER) | payer MEDICAID ==
--- NOTE | 2019-10-19 12:22 | Event Note ---
ED Screening Note Date of service: 10/19/19 Time: 12:17 ED Screening Note: 29 y o female with no prior medical history presents the ED complaining of lower abdominal/chest pain with inspiration that began last night. Patient states she has had some nausea and intermittent vomiting. She denies t aking any medications, fever EKG, wnl This initial assessment/diagnostic orders/clinical plan/treatment(s) is/are subject to change based on patients health status, clinical progression and re-assessment by fellow clinical providers in the ED. Further treatment and workup at subsequent clinical providers discretion. Patient/guardian urged not to elope from the ED as their condition may be serious if not clinically assessed and managed. Initial orders include: Labs ordered. ACC
[2019-10-19] MEDS ORDERED: ONDANSETRON 4 MG ODT TAB PO ONE (12:30)
[2019-10-19 13:07] LABS: Basophils % (Auto) 0.6 % (0.0-1.8); Eosinophils # (Auto) 0.1 K/mm3 (0.0-0.4); Eosinophils % (Auto) 2.4 % (0.0-4.3); Hematocrit 35.1 % (30.3-42.9); Hemoglobin 11.5 gm/dl (10.1-14.3); Lymphocytes # (Auto) 1.2 K/mm3 (1.2-5.4); Lymphocytes % (Auto) 27.8 % (13.4-35.0); Mean Corpuscular HGB Conc 33 % (30-34); Mean Corpuscular Volume 86 fl (79-97); Monocytes # (Auto) 0.3 K/mm3 (0.0-0.8); Monocytes % (Auto) 6.7 % (0.0-7.3); Platelet Count 227 K/mm3 (140-440); Red Blood Count 4.09 M/mm3 (3.65-5.03); Red Cell Distribution Width 13.5 % (13.2-15.2)
--- NOTE | 2019-10-19 13:26 | Emergency Department Report ---
ED General Adult HPI - General Chief complaint: Chest Pain Stated complaint: TYREE/CHEST PAIN/ABDOMINAL PAIN Time Seen by Provider: 10/19/19 12:23 Source: patient Mode of arrival: Ambulatory Limitations: No Limitations - History of Present Illness Initial comments: Patient is a 29-year-old female presents emergency room with complaints of discomfort with taking a deep breath in the lower chest that began yesterday. She has associated occasional shortness of breath and a mild cough with clear mucus production. She states that she also has nausea and vomiting and had approximately 5 episodes of vomiting last night. She denies any fever, diarrhea, leg swelling, hematochezia, hematemesis. She denies any recent travel, recent surgery, hormone use. She denies any past medical history allergies medications. She states her last menstrual cycle was 09/29/2019. She endorses tobacco use. She denies alcohol use. - Related Data Previous Rx's Medication Instructions Recorded Last Taken Type HYDROcodone/APAP 5-325 [[place] 1 each PO Q6HR PRN #12 tablet 11/15/15 Unknown Rx 5/325] Sulfamethoxazole/Trimethoprim 1 each PO BID #20 tablet 11/15/15 Unknown Rx [Bactrim DS TAB] Phenazopyridine [Pyridium] 200 mg PO TID #6 tab 07/23/18 Unknown Rx Sulfamethoxazole/Trimethoprim 1 each PO BID #6 tablet 07/23/18 Unknown Rx [Bactrim DS TAB] raNITIdine HCl [Zantac] 150 mg PO BID #20 tablet 10/26/18 Unknown Rx HYDROcodone/APAP 5-325 [[place] 1 each PO Q4HR PRN #10 tablet 10/29/18 Unknown Rx 5/325] Albuterol INH(or & Nicu Only) 2 puff IH QID PRN #1 inhalation 08/31/19 Unknown Rx [ProAir HFA Inhaler] Azithromycin [Zithromax] 500 mg PO QDAY #5 tablet 08/31/19 Unknown Rx guaiFENesin/CODEINE [Robitussin AC] 5 ml PO Q6H PRN #120 ml 08/31/19 Unknown Rx Allergies Allergy/AdvReac Type Severity Reaction Status Date / Time No Known Allergies Allergy Verified 04/22/19 17:28 ED Review of Systems ROS: Stated complaint: TYREE/CHEST PAIN/ABDOMINAL PAIN Other details as noted in HPI Comment: All other systems reviewed and negative ED Past Medical Hx - Past Medical History Hx Hypertension: No Hx Renal Disease: No Hx Seizures: Yes (AT AGE 4YRS-NEVER BEEN ON ANY MEDS) Hx Psychiatric Treatment: Yes (Anxiety) Hx Asthma: No Hx HIV: No Additional medical history: constipation - Surgical History Additional Surgical History: R hand surgery - Social History Smoking Status: Current Every Day Smoker Substance Use Type: None - Medications Home Medications: Home Medications Medication Instructions Recorded Confirmed Last Taken Type HYDROcodone/APAP 5-325 [[place] 1 each PO Q6HR PRN #12 tablet 11/15/15 Unknown Rx 5/325] Sulfamethoxazole/Trimethoprim 1 each PO BID #20 tablet 11/15/15 Unknown Rx [Bactrim DS TAB] Phenazopyridine [Pyridium] 200 mg PO TID #6 tab 07/23/18 Unknown Rx Sulfamethoxazole/Trimethoprim 1 each PO BID #6 tablet 07/23/18 Unknown Rx [Bactrim DS TAB] raNITIdine HCl [Zantac] 150 mg PO BID #20 tablet 10/26/18 Unknown Rx HYDROcodone/APAP 5-325 [[place] 1 each PO Q4HR PRN #10 tablet 10/29/18 Unknown Rx 5/325] Albuterol INH(or & Nicu Only) 2 puff IH QID PRN #1 inhalation 08/31/19 Unknown Rx [ProAir HFA Inhaler] Azithromycin [Zithromax] 500 mg PO QDAY #5 tablet 08/31/19 Unknown Rx guaiFENesin/CODEINE [Robitussin AC] 5 ml PO Q6H PRN #120 ml 08/31/19 Unknown Rx ED Physical Exam - General Limitations: No Limitations General appearance: alert, in no apparent distress - Head Head exam: Present: atraumatic, normocephalic - Eye Eye exam: Present: normal appearance - ENT ENT exam: Present: mucous membranes moist - Respiratory Respiratory exam: Present: normal lung sounds bilaterally. Absent: respiratory distress, wheezes, rales, rhonchi, stridor, chest wall tenderness, accessory mus barry use, decreased breath sounds, prolonged expiratory - Cardiovascular Cardiovascular Exam: Present: regular rate, normal rhythm, normal heart sounds. Absent: systolic murmur, diastolic murmur, rubs, gallop - GI/Abdominal GI/Abdominal exam: Present: soft, normal bowel sounds. Absent: distended, tenderness, guarding, rebound, rigid - Neurological Exam Neurological exam: Present: alert, oriented X3 - Psychiatric Psychiatric exam: Present: normal affect, normal mood - Skin Skin exam: Present: warm, dry, intact ED Course Vital Signs 10/19/19 11:34 Temperature 98.7 F Pulse Rate 65 Respiratory 12 Rate O2 Sat by Pulse 100 Oximetry ED Medical Decision Making - Lab Data Result diagrams: 10/19/19 12:33 10/19/19 12:28 Lab Results 10/19/19 10/19/19 10/19/19 Range/Units 12:28 12:28 12:28 WBC (4.5-11.0) K/mm3 RBC (3.65-5.03) M/mm3 Hgb (10.1-14.3) gm/dl Hct (30.3-42.9) % MCV (79-97) fl MCH (28-32) pg MCHC (30-34) % RDW (13.2-15.2) % Plt Count (140-440) K/mm3 Lymph % (Auto) (13.4-35.0) % [place] % (Auto) (0.0-7.3) % Eos % (Auto) (0.0-4.3) % Baso % (Auto) (0.0-1.8) % Lymph # (1.2-5.4) K/mm3 [place] # (0.0-0.8) K/mm3 Eos # (0.0-0.4) K/mm3 Baso # (0.0-0.1) K/mm3 Seg Neutrophils % (40.0-70.0) % Seg Neutrophils # (1.8-7.7) K/mm3 D-Dimer 209.97 (0-234) ng/mlDDU Sodium 136 L (137-145) mmol/L Potassium 4.6 (3.6-5.0) mmol/L Chloride 103.6 (98-107) mmol/L Carbon Dioxide 21 L (22-30) mmol/L Anion Gap 16 mmol/L BUN 17 (7-17) mg/dL Creatinine 0.6 L (0.7-1.2) mg/dL Estimated GFR > 60 ml/min BUN/Creatinine Ratio 28 % Glucose 86 (65-100) mg/dL Calcium 9.4 (8.4-10.2) mg/dL Total Bilirubin 0.60 (0.1-1.2) mg/dL AST 35 (5-40) units/L ALT 26 (7-56) units/L Alkaline Phosphatase 51 (35-129) units/L Troponin T (0.00-0.029) ng/mL Total Protein 7.1 (6.3-8.2) g/dL Albumin 4.4 (3.9-5) g/dL Albumin/Globulin Ratio 1.6 % Lipase (13-60) units/L HCG, Qual Negative (Negative) Urine Color (Yellow) Urine Turbidity (Clear) Urine pH (5.0-7.0) Ur Specific [place] (1.003-1.030) Urine Protein (Negative) mg/dL Urine Glucose (UA) (Negative) mg/dL Urine Ketones (Negative) mg/dL Urine Blood (Negative) Urine Nitrite (Negative) Urine Bilirubin (Negative) Urine Urobilinogen (<2.0) mg/dL Ur Leukocyte Esterase (Negative) Urine WBC (Auto) (0.0-6.0) /HPF Urine RBC (Auto) (0.0-6.0) /HPF U Epithel Cells (Auto) (0-13.0) /HPF Urine Mucus /HPF 10/19/19 10/19/19 10/19/19 Range/Units 12:28 12:33 13:14 WBC 4.2 L (4.5-11.0) K/mm3 RBC 4.09 (3.65-5.03) M/mm3 Hgb 11.5 (10.1-14.3) gm/dl Hct 35.1 (30.3-42.9) % MCV 86 (79-97) fl MCH 28 (28-32) pg MCHC 33 (30-34) % RDW 13.5 (13.2-15.2) % Plt Count 227 (140-440) K/mm3 Lymph % (Auto) 27.8 (13.4-35.0) % [place] % (Auto) 6.7 (0.0-7.3) % Eos % (Auto) 2.4 (0.0-4.3) % Baso % (Auto) 0.6 (0.0-1.8) % Lymph # 1.2 (1.2-5.4) K/mm3 [place] # 0.3 (0.0-0.8) K/mm3 Eos # 0.1 (0.0-0.4) K/mm3 Baso # 0.0 (0.0-0.1) K/mm3 Seg Neutrophils % 62.5 (40.0-70.0) % Seg Neutrophils # 2.7 (1.8-7.7) K/mm3 D-Dimer (0-234) ng/mlDDU Sodium (137-145) mmol/L Potassium (3.6-5.0) mmol/L Chloride (98-107) mmol/L Carbon Dioxide (22-30) mmol/L Anion Gap mmol/L BUN (7-17) mg/dL Creatinine (0.7-1.2) mg/dL Estimated GFR ml/min BUN/Creatinine Ratio % Glucose (65-100) mg/dL Calcium (8.4-10.2) mg/dL Total Bilirubin (0.1-1.2) mg/dL AST (5-40) units/L ALT (7-56) units/L Alkaline Phosphatase (35-129) units/L Troponin T < 0.010 (0.00-0.029) ng/mL Total Protein (6.3-8.2) g/dL Albumin (3.9-5) g/dL Albumin/Globulin Ratio % Lipase 61 H (13-60) units/L HCG, Qual (Negative) Urine Color Yellow (Yellow) Urine Turbidity Clear (Clear) Urine pH 5.0 (5.0-7.0) Ur Specific [place] 1.028 (1.003-1.030) Urine Protein <15 mg/dl (Negative) mg/dL Urine Glucose (UA) Neg (Negative) mg/dL Urine Ketones Neg (Negative) mg/dL Urine Blood Neg (Negative) Urine Nitrite Neg (Negative) Urine Bilirubin Neg (Negative) Urine Urobilinogen < 2.0 (<2.0) mg/dL Ur Leukocyte Esterase Neg (Negative) Urine WBC (Auto) < 1.0 (0.0-6.0) /HPF Urine RBC (Auto) 3.0 (0.0-6.0) /HPF U Epithel Cells (Auto) 2.0 (0-13.0) /HPF Urine Mucus 2+ /HPF - EKG Data EKG shows normal: sinus rhythm, axis, intervals, QRS complexes, ST-T waves Rate: normal - EKG Data 10/19/19 14:55 PAC no STEMI - Radiology Data Radiology results: report reviewed CHEST 2 VIEWS INDICATION / CLINICAL INFORMATION: CP. COMPARISON: 08/31/2019 FINDINGS: SUPPORT DEVICES: None. HEART / MEDIASTINUM: No significant abnormality. LUNGS / PLEURA: No significant pulmonary or pleural abnormality. No pneumothorax. ADDITIONAL FINDINGS: No significant additional findings. IMPRESSION: 1. No acute findings. Signer Name: Eric Murphy MD Signed: 10/19/2019 2:48 PM Workstation Name: [id number] Transcribed By: Dictated By: Eric Murphy MD Electronically Authenticated By: Eric Murphy MD Signed Date/Time: 10/19/191447 DD/ 46 TD/TT: - Medical Decision Making Patient is a 29-year-old female presents emergency room with complaints of discomfort with taking a deep breath in the lower chest that began yesterday. She has associated occasional shortness of breath and a mild cough with clear mucus production. She states that she also has nausea and vomiting and had approximately 5 episodes of vomiting last night. She denies any fever, diarrhea, leg swelling, hematochezia, hematemesis. She denies any recent travel, recent surgery, hormone use. She denies any past medical history allergies medications. She states her last menstrual cycle was 09/29/2019. She endorses tobacco use. She denies alcohol use. Labs are stable. D-dimer is negative. Troponin is negative. UA is normal. EKG with PAC, no STEMI. Chest x-ray with 1. No acute findings. PERC criteria negative for PE. No abnormality on physical exam as documented in chart. Breath sounds are clear bilaterally, no wheezing, no rales, no rhonchi. No signs of pleuritis. No clinical signs of pneumonia or acute bacterial bronchitis. Heart score is 1 from smoking, JUAN CARLOS score is 0. advised pt to please follow-up with a primary care doctor. Please follow-up with a lip cutter. Return to the emergency room for any new or worsening symptoms. - Differential Diagnosis URI, PNA, viral syndrome, PE, PTX, pericarditis, pleuritis, ACS Critical care attestation.: If time is entered above; I have spent that time in minutes in the direct care of this critically ill patient, excluding procedure time. ED Disposition Clinical Impression: Cough Chest pain Qualifiers: Chest pain type: chest pain on breathing Qualified Code(s): R07.1 - Chest pain on breathing Nausea & vomiting Qualifiers: Vomiting type: unspecified Vomiting Intractability: non-intractable Qualified Code(s): R11.2 - Nausea with vomiting, unspecified Disposition: TO HOME OR SELFCARE Is pt being admited?: No Does the pt Need Aspirin: No Condition: Stable Instructions: Chest Pain (ED), Viral Syndrome (ED) Additional Instructions: Please follow-up with a primary care doctor. Please follow-up with a lip cutter. Return to the emergency room for any new or worsening symptoms. Referrals: PRIMARY CARE, [Primary Care Provider] - 3-5 Days OCTAVIANO DEL RIO MD [Staff Physician] - 3-5 Days Time of Disposition: 14:56 Print Language: EMIRATI
[2019-10-19 13:38] LABS: Alanine Aminotransferase 26 units/L (7-56); Albumin 4.4 g/dL (3.9-5); BUN/Creatinine Ratio 28; Blood Urea Nitrogen 17 mg/dL (7-17); Calcium 9.4 mg/dL (8.4-10.2); Hemolysis Index 54
[2019-10-19 13:40] LABS: Bilirubin,Urine NEG (Negative); Blood,Urine NEG (Negative); Color,Urine Yellow (Yellow); Mucus,Urine 2+ /HPF; Protein,Urine <15 mg/dL mg/dL (Negative); Urobilinogen,Urine < 2.0 mg/dL (<2.0); WBC,Urine < 1.0 /HPF (0.0-6.0)
--- NOTE | 2019-10-19 14:52 | XRay Report ---
CHEST 2 VIEWS INDICATION / CLINICAL INFORMATION: CP. COMPARISON: 08/31/2019 FINDINGS: SUPPORT DEVICES: None. HEART / MEDIASTINUM: No significant abnormality. LUNGS / PLEURA: No significant pulmonary or pleural abnormality. No pneumothorax. ADDITIONAL FINDINGS: No significant additional findings. IMPRESSION: 1. No acute findings. Signer Name: Eric Murphy MD Signed: 10/19/2019 2:48 PM Workstation Name: [id number]
== END 2019-10-19 15:04 | disposition home or self-care (01) ==
LOC: ED 11:01
DX: R06.02 Shortness of breath (principal); R05 Cough; R11.2 Nausea with vomiting, unspecified; R07.89 Other chest pain; R56.9 Unspecified convulsions; F41.9 Anxiety disorder, unspecified; F17.200 Nicotine dependence, unspecified, uncomplicated; Z98.890 Other specified postprocedural states; Z79.899 Other long term (current) drug therapy; Z79.2 Long term (current) use of antibiotics
CPT/HCPCS: 36415; 71046; 80053; 81001; 83690; 84484; 84703; 85025; 85379; 93005; Q0162

== ENCOUNTER 2020-03-21 20:58 | Emergency (ER) | payer MEDICAID ==
[2020-03-21 23:06] VITALS: BP 128/81
[2020-03-22] MEDS ORDERED: KETOROLAC 30 MG/1 ML INJ IM ONE (04:54)
[2020-03-22] MEDS ORDERED: LIDOCAINE VISCOUS 2% 15 ML ORAL LIQD PO ONE (04:54)
[2020-03-22] MEDS ORDERED: dexAMETHasone 20 MG/5 ML VIAL IM ONE (04:54)
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
== END 2020-03-22 06:40 | disposition home or self-care (01) ==
LOC: ED 20:58
DX: J02.8 Acute pharyngitis due to other specified organisms (principal); G40.909 Epilepsy, unspecified, not intractable, without status epilepticus; F41.9 Anxiety disorder, unspecified; Z79.899 Other long term (current) drug therapy; Y08.89XA Assault by other specified means, initial encounter; Y93.89 Activity, other specified; Y92.89 Other specified places as the place of occurrence of the external cause; Y99.8 Other external cause status
CPT/HCPCS: 96372; 99282; J1100; J1885

== ENCOUNTER 2020-03-28 00:13 | Emergency (ER) | payer MEDICAID ==
[2020-03-28 09:29] VITALS: BP 152/92
--- NOTE | 2020-03-28 09:35 | Emergency Department Report ---
ED General Adult HPI - General Chief complaint: Allergic Reaction Stated complaint: ALLERGIC REACTION Time Seen by Provider: 03/28/20 09:07 Source: patient Mode of arrival: Ambulatory Limitations: No Limitations - History of Present Illness Initial comments: This pleasant 30-year-old female presents the emergency department with chief complaint of an itchy rash all over her body, sore throat, drowsiness that started over the past few days. She was seen here on 1111 with a sore throat and given amoxicillin 500 mg, ibuprofen, viscous lidocaine and prednisone. She states since starting these medications she has been having the symptoms. She denies any associated fevers, chills, night sweats, headache, dizziness, blurry vision, nausea, vomiting, diarrhea, chest pain, shortness of breath or any other associated symptoms. - Related Data Previous Rx's Medication Instructions Recorded Last Taken Type HYDROcodone/APAP 5-325 [[place] 1 each PO Q6HR PRN #12 tablet 11/15/15 Unknown Rx 5/325] Sulfamethoxazole/Trimethoprim 1 each PO BID #20 tablet 11/15/15 Unknown Rx [Bactrim DS TAB] Phenazopyridine [Pyridium] 200 mg PO TID #6 tab 07/23/18 Unknown Rx Sulfamethoxazole/Trimethoprim 1 each PO BID #6 tablet 07/23/18 Unknown Rx [Bactrim DS TAB] raNITIdine HCl [Zantac] 150 mg PO BID #20 tablet 10/26/18 Unknown Rx HYDROcodone/APAP 5-325 [[place] 1 each PO Q4HR PRN #10 tablet 10/29/18 Unknown Rx 5/325] Albuterol Mdi (or & Nicu Only) 2 puff IH QID PRN #1 inhalation 08/31/19 Unknown Rx [ProAir HFA Inhaler] Azithromycin [Zithromax] 500 mg PO QDAY #5 tablet 08/31/19 Unknown Rx guaiFENesin/CODEINE [Robitussin AC] 5 ml PO Q6H PRN #120 ml 08/31/19 Unknown Rx Amoxicillin [Trimox CAP] 500 mg PO Q8H #30 capsule 03/22/20 Unknown Rx Ibuprofen [Motrin] 600 mg PO Q8H PRN #30 tablet 03/22/20 Unknown Rx Lidocaine Viscous 2% 10 ml PO Q6H PRN #120 ml 03/22/20 Unknown Rx predniSONE [Deltasone] 40 mg PO QDAY #10 tab 03/22/20 Unknown Rx Allergies Allergy/AdvReac Type Severity Reaction Status Date / Time No Known Allergies Allergy Verified 04/22/19 17:28 ED Review of Systems ROS: Stated complaint: ALLERGIC REACTION Other details as noted in HPI Comment: All other systems reviewed and negative Constitutional: denies: chills, fever Eyes: denies: eye pain, eye discharge, vision change ENT: throat pain. denies: ear pain Respiratory: denies: cough, shortness of breath, wheezing Cardiovascular: denies: chest pain, palpitations Endocrine: no symptoms reported Gastrointestinal: denies: abdominal pain, nausea, diarrhea Genitourinary: denies: urgency, dysuria, discharge Musculoskeletal: denies: back pain, joint swelling, arthralgia Skin: as per HPI, rash. denies: lesions Neurological: denies: headache, weakness, paresthesias Psychiatric: denies: anxiety, depression Hematological/Lymphatic: denies: easy bleeding, easy bruising ED Past Medical Hx - Past Medical History Previous Medical History?: Yes Hx Hypertension: No Hx Renal Disease: No Hx Seizures: Yes (AT AGE 4YRS-NEVER BEEN ON ANY MEDS) Hx Psychiatric Treatment: Yes (Anxiety) Hx Asthma: No Hx HIV: No Additional medical history: constipation - Surgical History Past Surgical History?: Yes Additional Surgical History: R hand surgery - Social History Smoking Status: Current Every Day Smoker Substance Use Type: Alcohol - Medications Home Medications: Home Medications Medication Instructions Recorded Confirmed Last Taken Type HYDROcodone/APAP 5-325 [[place] 1 each PO Q6HR PRN #12 tablet 11/15/15 Unknown Rx 5/325] Sulfamethoxazole/Trimethoprim 1 each PO BID #20 tablet 11/15/15 Unknown Rx [Bactrim DS TAB] Phenazopyridine [Pyridium] 200 mg PO TID #6 tab 07/23/18 Unknown Rx Sulfamethoxazole/Trimethoprim 1 each PO BID #6 tablet 07/23/18 Unknown Rx [Bactrim DS TAB] raNITIdine HCl [Zantac] 150 mg PO BID #20 tablet 10/26/18 Unknown Rx HYDROcodone/APAP 5-325 [[place] 1 each PO Q4HR PRN #10 tablet 10/29/18 Unknown Rx 5/325] Albuterol Mdi (or & Nicu Only) 2 puff IH QID PRN #1 inhalation 08/31/19 Unknown Rx [ProAir HFA Inhaler] Azithromycin [Zithromax] 500 mg PO QDAY #5 tablet 08/31/19 Unknown Rx guaiFENesin/CODEINE [Robitussin AC] 5 ml PO Q6H PRN #120 ml 08/31/19 Unknown Rx Amoxicillin [Trimox CAP] 500 mg PO Q8H #30 capsule 03/22/20 Unknown Rx Ibuprofen [Motrin] 600 mg PO Q8H PRN #30 tablet 03/22/20 Unknown Rx Lidocaine Viscous 2% 10 ml PO Q6H PRN #120 ml 03/22/20 Unknown Rx predniSONE [Deltasone] 40 mg PO QDAY #10 tab 03/22/20 Unknown Rx ED Physical Exam - General Limitations: No Limitations General appearance: alert, in no apparent distress - Head Head exam: Present: atraumatic, normocephalic - Eye Eye exam: Present: normal appearance, PERRL, EOMI Pupils: Present: normal accommodation - ENT ENT exam: Present: normal exam, normal orophraynx, mucous membranes moist, other (Mild erythema of the posterior pharynx, no peritonsillar bulging, retropharyngeal bulging or tongue elevation. No exudate. No dysphonia or drooling. The airway is widely patent no stridor) - Neck Neck exam: Present: normal inspection, full ROM. Absent: tenderness, meningismus - Respiratory Respiratory exam: Present: normal lung sounds bilaterally. Absent: respiratory distress, wheezes, rales, rhonchi, stridor - Cardiovascular Cardiovascular Exam: Present: regular rate, normal rhythm, normal heart sounds. Absent: systolic murmur, diastolic murmur, rubs, gallop - GI/Abdominal GI/Abdominal exam: Present: soft, normal bowel sounds. Absent: distended, tenderness, guarding, rebound, rigid - Extremities Exam Extremities exam: Present: normal inspection, full ROM. Absent: tenderness, normal capillary refill, calf tenderness (Negative Homans' sign bilaterally) - Back Exam Back exam: Present: normal inspection, full ROM. Absent: tenderness, CVA tenderness (R), CVA tenderness (L) - Neurological Exam Neurological exam: Present: alert, oriented X3, CN II-XII intact, normal gait - Psychiatric Psychiatric exam: Present: normal affect, normal mood - Skin Skin exam: Present: warm, dry, intact, normal color. Absent: rash ED Course Vital Signs 03/28/20 03/28/20 01:09 09:28 Temperature 98.0 F Pulse Rate 127 H 92 H Respiratory 17 18 Rate Blood Pressure 160/101 Blood Pressure 152/92 [Left] O2 Sat by Pulse 96 97 Oximetry ED Medical Decision Making - Medical Decision Making Patient nontoxic in no acute distress. Suspect she is likely having adverse reaction to the amoxicillin or the prednisone. Her throat does not appear infected currently. There is no exudate. There is no lymphadenopathy. She is afebrile. She was little tachycardic however on repeat this returned to normal. I suspect her symptoms are related to an adverse reaction from the medication rather than a true allergy. Denies any signs of anaphylaxis no swelling of the lips, tongue, throat, no signs of SJS or TE N. Suspect this could possibly be a rash from mononucleosis getting antibiotics. Recommended rest, hydration, discontinue antibiotics and steroids at this time and follow-up with her primary care doctor. Return to the emerge department any change or worsening symptoms. She verbalized understand the diagnosis, treatment plan and follow-up instructions and all of her questions were answered. - Differential Diagnosis Allergic reaction, adverse reaction, anxiety Critical care attestation.: If time is entered above; I have spent that time in minutes in the direct care of this critically ill patient, excluding procedure time. ED Disposition Clinical Impression: Adverse reaction to antibiotic Disposition: DC-01 TO HOME OR SELFCARE Is pt being admited?: No Condition: Stable Instructions: Drug Allergy, [id number] Referrals: PRIMARY CARE, [Primary Care Provider] - 3-5 Days [facility] [Provider Group] - 3-5 Days Time of Disposition: 09:34
== END 2020-03-28 09:39 | disposition home or self-care (01) ==
LOC: ED 00:13
DX: T78.1XXA Other adverse food reactions, not elsewhere classified, initial encounter (principal); Z79.2 Long term (current) use of antibiotics; G40.909 Epilepsy, unspecified, not intractable, without status epilepticus; F17.200 Nicotine dependence, unspecified, uncomplicated; Z79.899 Other long term (current) drug therapy
CPT/HCPCS: 99282

== ENCOUNTER 2020-04-06 20:46 | Emergency (ER) | payer MEDICAID ==
[2020-04-06 21:30] VITALS: BP 121/79
== END 2020-04-06 21:30 | disposition left against medical advice (07) ==
LOC: ED 20:46
DX: T74.21XA Adult sexual abuse, confirmed, initial encounter (principal); Z53.21 Procedure and treatment not carried out due to patient leaving prior to being seen by health care provider

== ENCOUNTER 2020-04-15 23:00 | Emergency (ER) | payer MEDICAID ==
[2020-04-15 23:07] VITALS: BP 153/81
[2020-04-16] MEDS ORDERED: BENZONATATE 100 MG CAP PO ONE (00:07)
[2020-04-16] MEDS ORDERED: predniSONE 50 MG TAB PO ONE (00:07)
[2020-04-16 00:45] LABS: Bilirubin,Urine NEG (Negative); Blood,Urine NEG (Negative); Color,Urine Yellow (Yellow); Mucus,Urine 3+ /HPF; Urobilinogen,Urine < 2.0 mg/dL (<2.0)
[2020-04-16 00:51] LABS: HCG Qualitative,Urine Negative (Negative)
--- NOTE | 2020-04-16 01:23 | Emergency Department Report ---
ED General Adult HPI - General Chief complaint: Upper Respiratory Infection Stated complaint: COUGHING UP THICK YELLOW MUCUS/VOMITING Source: patient Mode of arrival: Ambulatory Limitations: No Limitations - History of Present Illness Initial comments: Patient is a 30-year-old -[place] female with a history of chronic seizures, anxiety and asthma as well as heavy tobacco abuse who presents to the ED with persistent cough with white-yellowish phlegm intermittently for the last 1 month. Patient also complains of mild shortness of breath and wheezing. Patient states that the cough is worse at night when she lays down to sleep. Patient denies chest pain, dizziness, syncope, fever, chills, nausea, vomiting, abdominal pain, sore throat, nasal and sinus congestion, headache, diarrhea, palpitations or seizures. MD Complaint: Persistent cough with white-yellowish phlegm; heavy tobacco abuse -: month(s) (1) Location: chest Radiation: non-radiation Severity scale (0 -10): 2 Quality: aching Consistency: intermittent Improves with: none Worsens with: none Associated Symptoms: denies other symptoms, cough. denies: confusion, chest pain, diaphoresis, fever/chills, headaches, loss of appetite, malaise, nausea/vomiting, seizure, shortness of breath, syncope, weakness Treatments Prior to Arrival: none - Related Data Previous Rx's Medication Instructions Recorded Last Taken Type HYDROcodone/APAP 5-325 [[place] 1 each PO Q6HR PRN #12 tablet 11/15/15 Unknown Rx 5/325] Sulfamethoxazole/Trimethoprim 1 each PO BID #20 tablet 11/15/15 Unknown Rx [Bactrim DS TAB] Phenazopyridine [Pyridium] 200 mg PO TID #6 tab 07/23/18 Unknown Rx Sulfamethoxazole/Trimethoprim 1 each PO BID #6 tablet 07/23/18 Unknown Rx [Bactrim DS TAB] raNITIdine HCl [Zantac] 150 mg PO BID #20 tablet 10/26/18 Unknown Rx HYDROcodone/APAP 5-325 [[place] 1 each PO Q4HR PRN #10 tablet 10/29/18 Unknown Rx 5/325] Azithromycin [Zithromax] 500 mg PO QDAY #5 tablet 08/31/19 Unknown Rx guaiFENesin/CODEINE [Robitussin AC] 5 ml PO Q6H PRN #120 ml 08/31/19 Unknown Rx Amoxicillin [Trimox CAP] 500 mg PO Q8H #30 capsule 03/22/20 Unknown Rx Ibuprofen [Motrin] 600 mg PO Q8H PRN #30 tablet 03/22/20 Unknown Rx Lidocaine Viscous 2% 10 ml PO Q6H PRN #120 ml 03/22/20 Unknown Rx predniSONE [Deltasone] 40 mg PO QDAY #10 tab 03/22/20 Unknown Rx Albuterol Mdi (or & Nicu Only) 2 puff IH QID PRN #1 inhalation 04/16/20 Unknown Rx [ProAir HFA Inhaler] Benzonatate [Tessalon Perles] 100 mg PO Q8HR #30 capsule 04/16/20 Unknown Rx Doxycycline Hyclate 100 mg PO Q12H #20 tablet. 04/16/20 Unknown Rx Ibuprofen [Motrin] 600 mg PO Q8H PRN #20 tablet 04/16/20 Unknown Rx predniSONE [Deltasone] 40 mg PO QDAY #12 tab 04/16/20 Unknown Rx Allergies Allergy/AdvReac Type Severity Reaction Status Date / Time No Known Allergies Allergy Verified 04/22/19 17:28 ED Review of Systems ROS: Stated complaint: COUGHING UP THICK YELLOW MUCUS/VOMITING Other details as noted in HPI Constitutional: denies: chills, fever Eyes: denies: eye pain, eye discharge, vision change ENT: denies: ear pain, throat pain Respiratory: cough, shortness of breath. denies: wheezing Cardiovascular: denies: chest pain, palpitations Endocrine: no symptoms reported Gastrointestinal: denies: abdominal pain, nausea, diarrhea Genitourinary: denies: urgency, dysuria, discharge Musculoskeletal: denies: back pain, joint swelling, arthralgia Skin: denies: rash, lesions Neurological: denies: headache, weakness, paresthesias Psychiatric: denies: anxiety, depression Hematological/Lymphatic: denies: easy bleeding, easy bruising ED Past Medical Hx - Past Medical History Previous Medical History?: Yes Hx Hypertension: No Hx Renal Disease: No Hx Seizures: Yes Hx Psychiatric Treatment: Yes (Anxiety) Hx Asthma: Yes Hx HIV: No Additional medical history: Constipation - Surgical History Past Surgical History?: Yes Additional Surgical History: R hand surgery - Social History Smoking Status: Current Every Day Smoker Substance Use Type: None - Medications Home Medications: Home Medications Medication Instructions Recorded Confirmed Last Taken Type HYDROcodone/APAP 5-325 [[place] 1 each PO Q6HR PRN #12 tablet 11/15/15 Unknown Rx 5/325] Sulfamethoxazole/Trimethoprim 1 each PO BID #20 tablet 11/15/15 Unknown Rx [Bactrim DS TAB] Phenazopyridine [Pyridium] 200 mg PO TID #6 tab 07/23/18 Unknown Rx Sulfamethoxazole/Trimethoprim 1 each PO BID #6 tablet 07/23/18 Unknown Rx [Bactrim DS TAB] raNITIdine HCl [Zantac] 150 mg PO BID #20 tablet 10/26/18 Unknown Rx HYDROcodone/APAP 5-325 [[place] 1 each PO Q4HR PRN #10 tablet 10/29/18 Unknown Rx 5/325] Azithromycin [Zithromax] 500 mg PO QDAY #5 tablet 08/31/19 Unknown Rx guaiFENesin/CODEINE [Robitussin AC] 5 ml PO Q6H PRN #120 ml 08/31/19 Unknown Rx Amoxicillin [Trimox CAP] 500 mg PO Q8H #30 capsule 03/22/20 Unknown Rx Ibuprofen [Motrin] 600 mg PO Q8H PRN #30 tablet 03/22/20 Unknown Rx Lidocaine Viscous 2% 10 ml PO Q6H PRN #120 ml 03/22/20 Unknown Rx predniSONE [Deltasone] 40 mg PO QDAY #10 tab 03/22/20 Unknown Rx Albuterol Mdi (or & Nicu Only) 2 puff IH QID PRN #1 inhalation 04/16/20 Unknown Rx [ProAir HFA Inhaler] Benzonatate [Tessalon Perles] 100 mg PO Q8HR #30 capsule 04/16/20 Unknown Rx Doxycycline Hyclate 100 mg PO Q12H #20 tablet. 04/16/20 Unknown Rx Ibuprofen [Motrin] 600 mg PO Q8H PRN #20 tablet 04/16/20 Unknown Rx predniSONE [Deltasone] 40 mg PO QDAY #12 tab 04/16/20 Unknown Rx ED Physical Exam - General Limitations: No Limitations General appearance: alert, in no apparent distress - Head Head exam: Present: atraumatic, normocephalic, normal inspection - Eye Eye exam: Present: normal appearance, PERRL, EOMI Pupils: Present: normal accommodation - ENT ENT exam: Present: normal exam, normal orophraynx, mucous membranes moist, TM's normal bilaterally, normal external ear exam - Neck Neck exam: Present: normal inspection, full ROM - Respiratory Respiratory exam: Present: normal lung sounds bilaterally. Absent: respiratory distress, wheezes, stridor, chest wall tenderness, accessory muscle use, decreased breath sounds - Cardiovascular Cardiovascular Exam: Present: regular rate, normal rhythm, normal heart sounds. Absent: systolic murmur, diastolic murmur, rubs, gallop - GI/Abdominal GI/Abdominal exam: Present: soft, normal bowel sounds. Absent: tenderness, guarding, rebound, hyperactive bowel sounds, hypoactive bowel sounds, organomegaly - Extremities Exam Extremities exam: Present: normal inspection, full ROM, normal capillary refill - Back Exam Back exam: Present: normal inspection, full ROM. Absent: tenderness, CVA tenderness (R), CVA tenderness (L), muscle spasm, paraspinal tenderness, vertebral tenderness - Neurological Exam Neurological exam: Present: alert, oriented X3, CN II-XII intact, normal gait, reflexes normal - Psychiatric Psychiatric exam: Present: normal affect, normal mood - Skin Skin exam: Present: warm, dry, intact, normal color. Absent: rash ED Course Vital Signs 04/15/20 23:04 Temperature 99.3 F Pulse Rate 95 H Respiratory 18 Rate Blood Pressure 153/81 O2 Sat by Pulse 99 Oximetry ED Medical Decision Making - Radiology Data Radiology results: report reviewed, image reviewed Findings [address] [address] XRay Report Signed Patient: CHARAN BROTHERS MR#: [id number] : 1990 Acct:[id number] Age/Sex: 30 / F ADM Date: 04/15/20 Loc: ED Attending Dr: Ordering Physician: MALINDA WADE Date of Service: 04/16/20 Procedure(s): XR chest routine 2V Accession Number(s): [id number] cc: MALINDA WADE Fluoro Time In Minutes: CHEST 2 VIEWS INDICATION / CLINICAL INFORMATION: cough. COMPARISON: Chest radiograph 10/19/2019 FINDINGS: SUPPORT DEVICES: None. HEART / MEDIASTINUM: No significant abnormality. LUNGS / PLEURA: No significant pulmonary or pleural abnormality. No pneumothorax. ADDITIONAL FINDINGS: No significant additional findings. IMPRESSION: 1. No acute findings. Signer Name: Geni Kang MD Signed: 04/16/2020 1:28 AM Workstation Name: [id number] Transcribed By: [facility] Dictated By: Geni Kang MD Electronically Authenticated By: Geni Kang MD Signed Date/Time: 04/16/20127 DD/ 7 TD/TT: - Medical Decision Making This is a 30-year-old -[place] female with a history of chronic seizures, anxiety and asthma as well as heavy tobacco abuse who presents to the ED with persistent cough with white-yellowish phlegm intermittently for the last 1 month. Patient also complains of mild shortness of breath and wheezing. Patient states that the cough is worse at night when she lays down to sleep. In the ED, patient is alert and oriented x3 and is not in distress. Patient was treated in the ED with oral steroids and cough medications. Chest x-ray shows no acute cardiopulmonary abnormalities or pneumonitis. On reevaluation, patient felt better and will discharge home on medications. Patient was advised to follow-up with her primary care physician in 7 to 10 days for reevaluation or return to the ED immediately if symptoms get worse. - Differential Diagnosis Bronchitis; Pneumonia; URI; Viral syndrome; Tobacco abuse Critical care attestation.: If time is entered above; I have spent that time in minutes in the direct care of this critically ill patient, excluding procedure time. ED Disposition Clinical Impression: Tobacco abuse Acute bronchitis Qualifiers: Bronchitis organism: other organism Qualified Code(s): J20.8 - Acute bronchitis due to other specified organisms Disposition: DC-01 TO HOME OR SELFCARE Is pt being admited?: No Does the pt Need Aspirin: No Condition: Stable Instructions: Acute Bronchitis (ED), Acute Bronchitis, Adult, [id number], Preventing Exposure to Secondhand Smoke, Adult Additional Instructions: Lab test results were reviewed and are all nonactionable. Chest x-ray shows no acute cardiopulmonary abnormalities or pneumonitis. Therefore take medications as advised, drink plenty of fluids and follow-up with your primary care physician in 7 to 10 days for reevaluation. Consider quitting tobacco abuse to improve on your symptoms. Return to the ED immediately if symptoms get worse. Prescriptions: predniSONE [Deltasone] 40 mg PO QDAY #12 tab Doxycycline Hyclate 100 mg PO Q12H #20 tablet. Ibuprofen [Motrin] 600 mg PO Q8H PRN #20 tablet PRN Reason: Pain Albuterol Mdi (or & Nicu Only) [ProAir HFA Inhaler] 2 puff IH QID PRN #1 inhalation PRN Reason: Shortness Of Breath Benzonatate [Tessalon Perles] 100 mg PO Q8HR #30 capsule Referrals: [facility] [Provider Group] - 7-10 days Time of Disposition: 01:25 Print Language: BURMESE
--- NOTE | 2020-04-16 01:33 | XRay Report ---
CHEST 2 VIEWS INDICATION / CLINICAL INFORMATION: cough. COMPARISON: Chest radiograph 10/19/2019 FINDINGS: SUPPORT DEVICES: None. HEART / MEDIASTINUM: No significant abnormality. LUNGS / PLEURA: No significant pulmonary or pleural abnormality. No pneumothorax. ADDITIONAL FINDINGS: No significant additional findings. IMPRESSION: 1. No acute findings. Signer Name: Geni Kang MD Signed: 04/16/2020 1:28 AM Workstation Name: [id number]
== END 2020-04-16 02:23 | disposition home or self-care (01) ==
LOC: ED 23:00
DX: J20.8 Acute bronchitis due to other specified organisms (principal); Z72.0 Tobacco use; F41.9 Anxiety disorder, unspecified; F17.200 Nicotine dependence, unspecified, uncomplicated; Z79.899 Other long term (current) drug therapy
CPT/HCPCS: 71046; 81001; 81025; 99284; J7512

== ENCOUNTER 2020-06-21 01:58 | Emergency (ER) | payer MEDICAID ==
--- NOTE | 2020-06-21 02:33 | Emergency Department Report ---
ED Female HPI - General Chief complaint: Urogenital-Female Stated complaint: PAINFUL BLISTER NEAR PUBLIC AREA X 2MONTHS Time Seen by Provider: 06/21/20 02:09 Source: patient Mode of arrival: Ambulatory Limitations: No Limitations - History of Present Illness Initial comments: pr is a 30 y/o aaf who presents for genital blister recurring of last 2 months, states symptoms are exacerbated by intercourse with partner, symptoms are relieved by nothing tried, pt denies abd pain , no n/v no fever or chills, no back pain , no abnormal vaginal bleeding MD Complaint: pelvic pain Onset/Timin -: month(s) - Related Data Previous Rx's Medication Instructions Recorded Last Taken Type HYDROcodone/APAP 5-325 [[place] 1 each PO Q6HR PRN #12 tablet 11/15/15 Unknown Rx 5/325] Sulfamethoxazole/Trimethoprim 1 each PO BID #20 tablet 11/15/15 Unknown Rx [Bactrim DS TAB] Phenazopyridine [Pyridium] 200 mg PO TID #6 tab 07/23/18 Unknown Rx Sulfamethoxazole/Trimethoprim 1 each PO BID #6 tablet 07/23/18 Unknown Rx [Bactrim DS TAB] raNITIdine HCl [Zantac] 150 mg PO BID #20 tablet 10/26/18 Unknown Rx HYDROcodone/APAP 5-325 [[place] 1 each PO Q4HR PRN #10 tablet 10/29/18 Unknown Rx 5/325] Azithromycin [Zithromax] 500 mg PO QDAY #5 tablet 08/31/19 Unknown Rx guaiFENesin/CODEINE [Robitussin AC] 5 ml PO Q6H PRN #120 ml 08/31/19 Unknown Rx Amoxicillin [Trimox CAP] 500 mg PO Q8H #30 capsule 03/22/20 Unknown Rx Ibuprofen [Motrin] 600 mg PO Q8H PRN #30 tablet 03/22/20 Unknown Rx Lidocaine Viscous 2% 10 ml PO Q6H PRN #120 ml 03/22/20 Unknown Rx predniSONE [Deltasone] 40 mg PO QDAY #10 tab 03/22/20 Unknown Rx Albuterol Mdi (or & Nicu Only) 2 puff IH QID PRN #1 inhalation 04/16/20 Unknown Rx [ProAir HFA Inhaler] Benzonatate [Tessalon Perles] 100 mg PO Q8HR #30 capsule 04/16/20 Unknown Rx Doxycycline Hyclate 100 mg PO Q12H #20 tablet. 04/16/20 Unknown Rx Ibuprofen [Motrin] 600 mg PO Q8H PRN #20 tablet 04/16/20 Unknown Rx predniSONE [Deltasone] 40 mg PO QDAY #12 tab 04/16/20 Unknown Rx Fluconazole (Nf) [Diflucan TAB] 150 mg PO ONCE #1 tablet 06/21/20 Unknown Rx cephALEXin [Keflex] 500 mg PO Q8HR 7 Days #21 cap 06/21/20 Unknown Rx Allergies Allergy/AdvReac Type Severity Reaction Status Date / Time No Known Allergies Allergy Verified 04/22/19 17:28 ED Review of Systems ROS: Stated complaint: PAINFUL BLISTER NEAR PUBLIC AREA X 2MONTHS Other details as noted in HPI Constitutional: denies: chills, fever Eyes: denies: eye pain, eye discharge, vision change ENT: denies: ear pain, throat pain Respiratory: denies: cough, shortness of breath, wheezing Cardiovascular: denies: chest pain, palpitations Endocrine: no symptoms reported Gastrointestinal: denies: abdominal pain, nausea, vomiting, diarrhea Genitourinary: other (pelvic ulcer ). denies: urgency, dysuria, discharge Musculoskeletal: denies: back pain, joint swelling, arthralgia Skin: denies: rash, lesions Neurological: denies: headache, weakness, paresthesias Psychiatric: as per HPI Hematological/Lymphatic: denies: easy bleeding, easy bruising ED Past Medical Hx - Past Medical History Previous Medical History?: Yes Hx Hypertension: No Hx Renal Disease: No Hx Seizures: Yes Hx Psychiatric Treatment: Yes (Anxiety) Hx Asthma: Yes Hx HIV: No Additional medical history: Constipation - Surgical History Past Surgical History?: Yes Additional Surgical History: R hand surgery - Social History Smoking Status: Current Every Day Smoker Substance Use Type: None - Medications Home Medications: Home Medications Medication Instructions Recorded Confirmed Last Taken Type HYDROcodone/APAP 5-325 [[place] 1 each PO Q6HR PRN #12 tablet 11/15/15 Unknown Rx 5/325] Sulfamethoxazole/Trimethoprim 1 each PO BID #20 tablet 11/15/15 Unknown Rx [Bactrim DS TAB] Phenazopyridine [Pyridium] 200 mg PO TID #6 tab 07/23/18 Unknown Rx Sulfamethoxazole/Trimethoprim 1 each PO BID #6 tablet 07/23/18 Unknown Rx [Bactrim DS TAB] raNITIdine HCl [Zantac] 150 mg PO BID #20 tablet 10/26/18 Unknown Rx HYDROcodone/APAP 5-325 [[place] 1 each PO Q4HR PRN #10 tablet 10/29/18 Unknown Rx 5/325] Azithromycin [Zithromax] 500 mg PO QDAY #5 tablet 08/31/19 Unknown Rx guaiFENesin/CODEINE [Robitussin AC] 5 ml PO Q6H PRN #120 ml 08/31/19 Unknown Rx Amoxicillin [Trimox CAP] 500 mg PO Q8H #30 capsule 03/22/20 Unknown Rx Ibuprofen [Motrin] 600 mg PO Q8H PRN #30 tablet 03/22/20 Unknown Rx Lidocaine Viscous 2% 10 ml PO Q6H PRN #120 ml 03/22/20 Unknown Rx predniSONE [Deltasone] 40 mg PO QDAY #10 tab 03/22/20 Unknown Rx Albuterol Mdi (or & Nicu Only) 2 puff IH QID PRN #1 inhalation 04/16/20 Unknown Rx [ProAir HFA Inhaler] Benzonatate [Tessalon Perles] 100 mg PO Q8HR #30 capsule 04/16/20 Unknown Rx Doxycycline Hyclate 100 mg PO Q12H #20 tablet. 04/16/20 Unknown Rx Ibuprofen [Motrin] 600 mg PO Q8H PRN #20 tablet 04/16/20 Unknown Rx predniSONE [Deltasone] 40 mg PO QDAY #12 tab 04/16/20 Unknown Rx Fluconazole (Nf) [Diflucan TAB] 150 mg PO ONCE #1 tablet 06/21/20 Unknown Rx cephALEXin [Keflex] 500 mg PO Q8HR 7 Days #21 cap 06/21/20 Unknown Rx ED Physical Exam - General Limitations: No Limitations General appearance: alert, in no apparent distress - Head Head exam: Present: atraumatic, normocephalic - Eye Eye exam: Present: normal appearance - ENT ENT exam: Present: mucous membranes moist - Neck Neck exam: Present: normal inspection - Respiratory Respiratory exam: Present: normal lung sounds bilaterally. Absent: respiratory distress, wheezes, stridor - Cardiovascular Cardiovascular Exam: Present: regular rate, normal rhythm, normal heart sounds. Absent: systolic murmur, diastolic murmur, rubs, gallop - GI/Abdominal GI/Abdominal exam: Present: soft, normal bowel sounds. Absent: distended, tenderness, guarding, rebound, bruit, hernia - Rectal Rectal exam: Present: deferred - External exam: Present: erythema, other (rash erythema dry flaky bullae firm, non fluctuant, no drainage, ). Absent: swelling, lacerations, ecchymosis, bleeding Bi-manual exam: Absent: cervical motion tendernes - Extremities Exam Extremities exam: Present: normal inspection, full ROM. Absent: tenderness - Back Exam Back exam: Present: normal inspection, full ROM. Absent: tenderness, CVA tenderness (R), CVA tenderness (L) - Neurological Exam Neurological exam: Present: alert, oriented X3, CN II-XII intact, normal gait - Psychiatric Psychiatric exam: Present: normal affect, normal mood - Skin Skin exam: Present: warm, dry, intact, normal color, other (ulscer as above ) ED Course Vital Signs 06/21/20 02:03 Temperature 99.0 F Pulse Rate 111 H Respiratory 16 Rate Blood Pressure 144/95 O2 Sat by Pulse 97 Oximetry ED Medical Decision Making - Lab Data Labs 06/21/20 02:28 Urine Color Colorless Urine Turbidity Clear Urine pH 6.0 Ur Specific [place] 1.002 L Urine Protein <15 mg/dl Urine Glucose (UA) Neg Urine Ketones Neg Urine Blood Neg Urine Nitrite Neg Urine Bilirubin Neg Urine Urobilinogen < 2.0 Ur Leukocyte Esterase Neg Urine WBC (Auto) < 1.0 Urine RBC (Auto) < 1.0 Urine Mucus Few Urine HCG, Qual Negative - Medical Decision Making Mons less than 1cm, erythema, nofluctuant, no drainage, vaginal exam norm , plan diflucan, keflex po, follow up with mower mechanic in 2 days as scheduled, pt verbalized agreement and understanding of discharge plan. pt dc'd to home in stabble condition at this time. vital signs noted : HR 72, bp: 114/62, resp: 16 , Critical care attestation.: If time is entered above; I have spent that time in minutes in the direct care of this critically ill patient, excluding procedure time. ED Disposition Clinical Impression: Tamiko infection of genital region Cellulitis Qualifiers: Site of cellulitis: other site Qualified Code(s): L03.818 - Cellulitis of other sites Disposition: DC- TO HOME OR SELFCARE Is pt being admited?: No Does the pt Need Aspirin: No Condition: Stable Instructions: Cellulitis, Adult, Skin Yeast Infection Prescriptions: Fluconazole (Nf) [Diflucan TAB] 150 mg PO ONCE #1 tablet cephALEXin [Keflex] 500 mg PO Q8HR 7 Days #21 cap Referrals: CURT TAMAYO JR, MD [Staff Physician] - 3-5 Days Forms: Work/School Release Form(ED) Time of Disposition: 03:55
[2020-06-21 02:49] LABS: Bilirubin,Urine NEG (Negative); Blood,Urine NEG (Negative); Color,Urine Colorless (Yellow); Mucus,Urine FEW /HPF; Protein,Urine <15 mg/dL mg/dL (Negative); RBC,Urine < 1.0 /HPF (0.0-6.0); Urobilinogen,Urine < 2.0 mg/dL (<2.0); WBC,Urine < 1.0 /HPF (0.0-6.0)
[2020-06-21 02:59] LABS: HCG Qualitative,Urine Negative (Negative)
[2020-06-21 03:57] VITALS: BP 141/92
== END 2020-06-21 05:00 | disposition home or self-care (01) ==
LOC: ED 01:58
DX: N73.2 Unspecified parametritis and pelvic cellulitis (principal); B37.9 Candidiasis, unspecified; R56.9 Unspecified convulsions; F41.9 Anxiety disorder, unspecified; J45.909 Unspecified asthma, uncomplicated; F17.200 Nicotine dependence, unspecified, uncomplicated; Z98.890 Other specified postprocedural states; Z79.1 Long term (current) use of non-steroidal anti-inflammatories (NSAID); Z79.2 Long term (current) use of antibiotics; Z79.899 Other long term (current) drug therapy
CPT/HCPCS: 81001; 81025

== ENCOUNTER 2020-07-14 20:28 | Emergency (ER) | payer MEDICAID ==
[2020-07-14 22:25] VITALS: BP 126/77
== END 2020-07-14 23:20 | disposition left against medical advice (07) ==
LOC: ED 20:28
DX: R22.41 Localized swelling, mass and lump, right lower limb (principal); Z53.21 Procedure and treatment not carried out due to patient leaving prior to being seen by health care provider; Y04.2XXA Assault by strike against or bumped into by another person, initial encounter; Y93.89 Activity, other specified; Y92.89 Other specified places as the place of occurrence of the external cause; Y99.8 Other external cause status

== ENCOUNTER 2020-09-03 16:37 | Emergency (ER) | payer MEDICAID ==
[2020-09-03 17:03] VITALS: BP 124/88
--- NOTE | 2020-09-03 17:04 | Emergency Department Report ---
ED General Adult HPI - General Chief complaint: Chest Pain Stated complaint: CHEST PAIN, WEAK, BURNING URINATION, DIARRHEA Time Seen by Provider: 09/03/20 17:02 Source: patient Mode of arrival: Ambulatory Limitations: No Limitations - History of Present Illness Initial comments: 30-year-old smoker presents emerged department complaining of a 1 week history of epigastric and lower esophageal burning sensation with a acidic taste at Thor of an unknown etiology she reports no palliative or provocative factors to her knowledge. Also has had a cough with some mucus production over the last 5 days with some coryza and fatigue which has progressively worsened since the onset now she has been experiencing a 2-day history of diarrhea. She reports no known contact with the coronavirus. Reports no hemoptysis, no hematemesis no hematochezia no hematuria no dysuria. -: Gradual Improves with: none Worsens with: none Associated Symptoms: other. denies: diaphoresis, malaise, syncope, weakness - Related Data Previous Rx's Medication Instructions Recorded Last Taken Type HYDROcodone/APAP 5-325 [[place] 1 each PO Q6HR PRN #12 tablet 11/15/15 Unknown Rx 5/325] Sulfamethoxazole/Trimethoprim 1 each PO BID #20 tablet 11/15/15 Unknown Rx [Bactrim DS TAB] Phenazopyridine [Pyridium] 200 mg PO TID #6 tab 07/23/18 Unknown Rx Sulfamethoxazole/Trimethoprim 1 each PO BID #6 tablet 07/23/18 Unknown Rx [Bactrim DS TAB] raNITIdine HCl [Zantac] 150 mg PO BID #20 tablet 10/26/18 Unknown Rx HYDROcodone/APAP 5-325 [[place] 1 each PO Q4HR PRN #10 tablet 10/29/18 Unknown Rx 5/325] Azithromycin [Zithromax] 500 mg PO QDAY #5 tablet 08/31/19 Unknown Rx guaiFENesin/CODEINE [Robitussin AC] 5 ml PO Q6H PRN #120 ml 08/31/19 Unknown Rx Amoxicillin [Trimox CAP] 500 mg PO Q8H #30 capsule 03/22/20 Unknown Rx Ibuprofen [Motrin] 600 mg PO Q8H PRN #30 tablet 03/22/20 Unknown Rx Lidocaine Viscous 2% 10 ml PO Q6H PRN #120 ml 03/22/20 Unknown Rx predniSONE [Deltasone] 40 mg PO QDAY #10 tab 03/22/20 Unknown Rx Albuterol Mdi (or & Nicu Only) 2 puff IH QID PRN #1 inhalation 04/16/20 Unknown Rx [ProAir HFA Inhaler] Benzonatate [Tessalon Perles] 100 mg PO Q8HR #30 capsule 04/16/20 Unknown Rx Doxycycline Hyclate 100 mg PO Q12H #20 tablet.dr 04/16/20 Unknown Rx Ibuprofen [Motrin] 600 mg PO Q8H PRN #20 tablet 04/16/20 Unknown Rx predniSONE [Deltasone] 40 mg PO QDAY #12 tab 04/16/20 Unknown Rx Fluconazole (Nf) [Diflucan TAB] 150 mg PO ONCE #1 tablet 06/21/20 Unknown Rx cephALEXin [Keflex] 500 mg PO Q8HR 7 Days #21 cap 06/21/20 Unknown Rx Albuterol Mdi (or & Nicu Only) 2 puff IH QID PRN #1 inhalation 09/03/20 Unknown Rx [ProAir HFA Inhaler] Azithromycin [Zithromax] 500 mg PO QDAY #5 tablet 09/03/20 Unknown Rx Benzonatate [Tessalon Perles] 100 mg PO Q8HR #20 capsule 09/03/20 Unknown Rx Allergies Allergy/AdvReac Type Severity Reaction Status Date / Time No Known Allergies Allergy Verified 04/22/19 17:28 ED Review of Systems ROS: Stated complaint: CHEST PAIN, WEAK, BURNING URINATION, DIARRHEA Other details as noted in HPI Comment: All other systems reviewed and negative Genitourinary: dysuria, frequency ED Past Medical Hx - Past Medical History Previous Medical History?: Yes Hx Hypertension: No Hx Renal Disease: No Hx Seizures: Yes Hx Psychiatric Treatment: Yes (Anxiety) Hx Asthma: Yes Hx HIV: No Additional medical history: Constipation - Surgical History Past Surgical History?: Yes Additional Surgical History: R hand surgery - Social History Smoking Status: Current Every Day Smoker Substance Use Type: Alcohol - Medications Home Medications: Home Medications Medication Instructions Recorded Confirmed Last Taken Type HYDROcodone/APAP 5-325 [[place] 1 each PO Q6HR PRN #12 tablet 11/15/15 Unknown Rx 5/325] Sulfamethoxazole/Trimethoprim 1 each PO BID #20 tablet 11/15/15 Unknown Rx [Bactrim DS TAB] Phenazopyridine [Pyridium] 200 mg PO TID #6 tab 07/23/18 Unknown Rx Sulfamethoxazole/Trimethoprim 1 each PO BID #6 tablet 07/23/18 Unknown Rx [Bactrim DS TAB] raNITIdine HCl [Zantac] 150 mg PO BID #20 tablet 10/26/18 Unknown Rx HYDROcodone/APAP 5-325 [[place] 1 each PO Q4HR PRN #10 tablet 10/29/18 Unknown Rx 5/325] Azithromycin [Zithromax] 500 mg PO QDAY #5 tablet 08/31/19 Unknown Rx guaiFENesin/CODEINE [Robitussin AC] 5 ml PO Q6H PRN #120 ml 08/31/19 Unknown Rx Amoxicillin [Trimox CAP] 500 mg PO Q8H #30 capsule 03/22/20 Unknown Rx Ibuprofen [Motrin] 600 mg PO Q8H PRN #30 tablet 03/22/20 Unknown Rx Lidocaine Viscous 2% 10 ml PO Q6H PRN #120 ml 03/22/20 Unknown Rx predniSONE [Deltasone] 40 mg PO QDAY #10 tab 03/22/20 Unknown Rx Albuterol Mdi (or & Nicu Only) 2 puff IH QID PRN #1 inhalation 04/16/20 Unknown Rx [ProAir HFA Inhaler] Benzonatate [Tessalon Perles] 100 mg PO Q8HR #30 capsule 04/16/20 Unknown Rx Doxycycline Hyclate 100 mg PO Q12H #20 tablet. 04/16/20 Unknown Rx Ibuprofen [Motrin] 600 mg PO Q8H PRN #20 tablet 04/16/20 Unknown Rx predniSONE [Deltasone] 40 mg PO QDAY #12 tab 04/16/20 Unknown Rx Fluconazole (Nf) [Diflucan TAB] 150 mg PO ONCE #1 tablet 06/21/20 Unknown Rx cephALEXin [Keflex] 500 mg PO Q8HR 7 Days #21 cap 06/21/20 Unknown Rx Albuterol Mdi (or & Nicu Only) 2 puff IH QID PRN #1 inhalation 09/03/20 Unknown Rx [ProAir HFA Inhaler] Azithromycin [Zithromax] 500 mg PO QDAY #5 tablet 09/03/20 Unknown Rx Benzonatate [Tessalon Perles] 100 mg PO Q8HR #20 capsule 09/03/20 Unknown Rx ED Physical Exam - General Limitations: No Limitations General appearance: alert, in no apparent distress - Head Head exam: Present: atraumatic, normocephalic - Eye Eye exam: Present: normal appearance, PERRL, EOMI Pupils: Present: normal accommodation - ENT ENT exam: Present: mucous membranes moist - Neck Neck exam: Present: normal inspection - Respiratory Respiratory exam: Present: normal lung sounds bilaterally. Absent: respiratory distress - Cardiovascular Cardiovascular Exam: Present: regular rate, normal rhythm. Absent: systolic murmur, diastolic murmur, rubs, gallop - GI/Abdominal GI/Abdominal exam: Present: soft, normal bowel sounds - Extremities Exam Extremities exam: Present: normal inspection - Back Exam Back exam: Present: normal inspection - Neurological Exam Neurological exam: Present: alert, oriented X3 - Psychiatric Psychiatric exam: Present: normal affect, normal mood - Skin Skin exam: Present: warm, dry, intact, normal color. Absent: rash ED Course Vital Signs 09/03/20 17:01 Temperature 98.6 F Pulse Rate 90 Respiratory 15 Rate Blood Pressure 124/88 O2 Sat by Pulse 97 Oximetry ED Medical Decision Making - Radiology Data Radiology results: report reviewed [address] [place] [id number] XRay Report Signed Patient: CHARAN BROTHERS MR#: [id number] : 1990 Acct:[id number] Age/Sex: 30 / F ADM Date: 09/03/20 Loc: ED Attending Dr: Ordering Physician: MALINDA DAVID Date of Service: 09/03/20 Procedure(s): XR chest routine 2V Accession Number(s): [id number] cc: MALINDA DAVID Fluoro Time In Minutes: CHEST 2 VIEWS INDICATION / CLINICAL INFORMATION: cough. COMPARISON: 04/16/20 FINDINGS: SUPPORT DEVICES: None. HEART / MEDIASTINUM: No significant abnormality. LUNGS / PLEURA: No significant pulmonary or pleural abnormality. No pneumothorax. ADDITIONAL FINDINGS: No significant additional findings. IMPRESSION: 1. No acute findings. No change. Signer Name: Tess Elizondo MD Signed: 09/03/2020 6:06 PM Workstation Name: [id number] Transcribed By: DT Dictated By: Luca Elizondo MD Electronically Authenticated By: Luca Elizondo MD Signed Date/Time: 09/03/201805 DD/ 04 TD/TT: Print Cancel - Medical Decision Making 1. Cough this patient presents with acute cough, most consistent with a viral infectious process.. Differential diagnosis includes bronchitis, asthma, hyperreactive airway disease. Presentation not consistent with acute bacterial pneumonia, influenza, asthma, transient airway hyperresponsiveness. Presentation not consistent with chronic causes of cough (including GERD, asthma, postnasal discharge, medication side effect, CHF, lung cancer or mass). Normal chest x-ray 2. Coryza, diarrhea This patient presents with lower respiratory symptoms concerning for viral syndrome including flu. Patient does not meet criteria for COVID-19. Doubt pneumonia, sepsis or other serious bacterial infection or acute emergent condition. Is otherwise well- appearing with acceptable vitals and reassuring physical examination and is safe to be discharged home. Patient lacks serious medical comorbidities that would require admission. Patient is nontoxic and although symptomatic otherwise safe to go home. Will provide strict return precautions and instructions on self isolation/quarantine and anticipatory guidance. Plan: We will treat the symptoms this is a suspicion for coronavirus will will educate manage accordingly as well. Advised for close follow-up with the patient does understand Critical care attestation.: If time is entered above; I have spent that time in minutes in the direct care of this critically ill patient, excluding procedure time. ED Disposition Clinical Impression: Cough, Diarrhea Disposition: DC-01 TO HOME OR SELFCARE Is pt being admited?: No Does the pt Need Aspirin: No Condition: Stable Instructions: Cool Mist Vaporizer, Diarrhea, Adult, Cough, Adult, [id number], COVID-19, Viral Respiratory Infection Test, Infection Prevention in the Home, COVID-19 Frequently Asked Questions, Prevent the Spread of COVID-19 if You Are Sick - [facility] Additional Instructions: Has recommended that you get evaluated for COVID-19. Please stay hydrated follow-up to primary care within 48 hours for reevaluation. Take Tylenol and Motrin as needed for fever pain and discomfort. Referrals: JOANNA DORAN MD [Primary Care Provider] - 3-5 Days [facility] [Provider Group] - 3-5 Days VALORIE GALICIA MD [Staff Physician] - 3-5 Days
--- NOTE | 2020-09-03 18:10 | XRay Report ---
CHEST 2 VIEWS INDICATION / CLINICAL INFORMATION: cough. COMPARISON: 04/16/20 FINDINGS: SUPPORT DEVICES: None. HEART / MEDIASTINUM: No significant abnormality. LUNGS / PLEURA: No significant pulmonary or pleural abnormality. No pneumothorax. ADDITIONAL FINDINGS: No significant additional findings. IMPRESSION: 1. No acute findings. No change. Signer Name: Tess Elizondo MD Signed: 09/03/2020 6:06 PM Workstation Name: [id number]
== END 2020-09-03 19:20 | disposition home or self-care (01) ==
LOC: ED 16:37
DX: R05 Cough (principal); R19.7 Diarrhea, unspecified; R56.9 Unspecified convulsions; F41.9 Anxiety disorder, unspecified; J45.909 Unspecified asthma, uncomplicated; F17.200 Nicotine dependence, unspecified, uncomplicated; Z98.890 Other specified postprocedural states; Z79.1 Long term (current) use of non-steroidal anti-inflammatories (NSAID); Z79.2 Long term (current) use of antibiotics; Z79.899 Other long term (current) drug therapy
CPT/HCPCS: 71046

== ENCOUNTER 2020-12-16 21:28 | Emergency (ER) | payer MEDICAID ==
[2020-12-16 22:32] VITALS: BP 148/90
--- NOTE | 2020-12-17 01:53 | Vascular Lab Report ---
DUPLEX DOPPLER LOWER EXTREMITY VEINS, RIGHT INDICATION: Right leg bruises: Right pelvis ecchymosis, mass. TECHNIQUE: Duplex doppler imaging was performed through the veins of the right lower extremity using venous comp ression and other maneuvers. COMPARISON: No relevant prior imaging study available. FINDINGS: Right Common femoral vein: Negative. Right Superficial femoral vein: Negative. Right Popliteal vein: Negative. Right Calf veins: Negative. Additional findings: None.. IMPRESSION: 1. No sonographic evidence for DVT in the right lower extremity. Signer Name: Yandel Hernandez MD Signed: 12/17/2020 1:49 AM Workstation Name: [id number]
[2020-12-17 02:01] LABS: Eosinophils # (Auto) 0.1 K/mm3 (0.0-0.4); Eosinophils % (Auto) 2.5 % (0.0-4.3); Hematocrit 34.6 % (30.3-42.9); Hemoglobin 11.8 gm/dl (10.1-14.3); Lymphocytes # (Auto) 1.4 K/mm3 (1.2-5.4); Lymphocytes % (Auto) 29.8 % (13.4-35.0); Mean Corpuscular HGB Conc 34 % (30-34); Mean Corpuscular Volume 88 fl (79-97); Monocytes # (Auto) 0.3 K/mm3 (0.0-0.8); Monocytes % (Auto) 6.1 % (0.0-7.3); Platelet Count 270 K/mm3 (140-440); Red Blood Count 3.94 M/mm3 (3.65-5.03); Red Cell Distribution Width 13.6 % (13.2-15.2)
[2020-12-17 02:19] LABS: Alanine Aminotransferase 16 units/L (7-56); Albumin 4.5 g/dL (3.9-5); Blood Urea Nitrogen 12 mg/dL (7-17); Calcium 8.9 mg/dL (8.4-10.2); Hemolysis Index 1; INR 0.96 (0.87-1.13)
[2020-12-17 02:20] LABS: BUN/Creatinine Ratio 17; Partial Thromboplastin Time 26.8 Sec. (24.2-36.6)
[2020-12-17] MEDS ORDERED: IBUPROFEN 600 MG TAB PO ONE (02:20)
--- NOTE | 2020-12-17 03:12 | XRay Report ---
Right ring finger-3 views INDICATION: Right ring finger pain and swelling. COMPARISON: None. IMPRESSION: No acute osseous abnormality. Mild soft tissue swelling about the ring finger. No subcu taneous gas or soft tissue wound. Normal alignment. No significant DJD. Signer Name: Yandel Hernandez MD Signed: 12/17/2020 3:08 AM Workstation Name: [id number]
--- NOTE | 2020-12-17 03:39 | Emergency Department Report ---
ED Extremity Problem HPI - General Chief complaint: Wound/Laceration Stated complaint: BLOOD CLOT,PAIN,TYREE Source: patient Mode of arrival: Ambulatory Limitations: No Limitations - History of Present Illness Initial comments: Patient is a 30-year-old -[place] female with a history of anxiety who presents to the ED with complaints of persistent intermittent diffuse right lower leg bruises and mild pain for the last 1 month, worse in the last 1 week. Patient also complains of persistent distal right ring finger pain from an old injury and surgery over 1 year ago. Patient states that the bruises have been persistent in her right leg, right hip and right thigh with no known etiology. Patient denies fall, traumatic injury, nausea, vomiting, chest pain, shortness o f breath, numbness and tingling or weakness of lower extremities bilaterally, change in vision, cough, heavy lifting, fever and chills. MD Complaint: extremity pain (right leg bruises and pain; right ring finger pain) -: Sudden, week(s) (1) Location: right, lower extremity ( and hip ecchymosis) History of Same: Yes -: Yes myalgia Radiation: distal Severity scale (0 -10): 6 Quality: aching, sharp Consistency: intermittent Improves with: nothing Worsens with: walking, palpation Associated Symptoms: denies other symptoms, arthralgias, rash (Diffuse ecchymosis on right lower leg and hip). denies: chest pain, shortness of breath, myalgias - Related Data Previous Rx's Medication Instructions Recorded Last Taken Type HYDROcodone/APAP 5-325 [[place] 1 each PO Q6HR PRN #12 tablet 11/15/15 Unknown Rx 5/325] Sulfamethoxazole/Trimethoprim 1 each PO BID #20 tablet 11/15/15 Unknown Rx [Bactrim DS TAB] Phenazopyridine [Pyridium] 200 mg PO TID #6 tab 07/23/18 Unknown Rx Sulfamethoxazole/Trimethoprim 1 each PO BID #6 tablet 07/23/18 Unknown Rx [Bactrim DS TAB] raNITIdine HCl [Zantac] 150 mg PO BID #20 tablet 10/26/18 Unknown Rx HYDROcodone/APAP 5-325 [[place] 1 each PO Q4HR PRN #10 tablet 10/29/18 Unknown Rx 5/325] Azithromycin [Zithromax] 500 mg PO QDAY #5 tablet 08/31/19 Unknown Rx guaiFENesin/CODEINE [Robitussin AC] 5 ml PO Q6H PRN #120 ml 08/31/19 Unknown Rx Amoxicillin [Trimox CAP] 500 mg PO Q8H #30 capsule 03/22/20 Unknown Rx Ibuprofen [Motrin] 600 mg PO Q8H PRN #30 tablet 03/22/20 Unknown Rx Lidocaine Viscous 2% 10 ml PO Q6H PRN #120 ml 03/22/20 Unknown Rx predniSONE [Deltasone] 40 mg PO QDAY #10 tab 03/22/20 Unknown Rx Albuterol Mdi (or & Nicu Only) 2 puff IH QID PRN #1 inhalation 04/16/20 Unknown Rx [ProAir HFA Inhaler] Benzonatate [Tessalon Perles] 100 mg PO Q8HR #30 capsule 04/16/20 Unknown Rx Doxycycline Hyclate 100 mg PO Q12H #20 tablet. 04/16/20 Unknown Rx Ibuprofen [Motrin] 600 mg PO Q8H PRN #20 tablet 04/16/20 Unknown Rx predniSONE [Deltasone] 40 mg PO QDAY #12 tab 04/16/20 Unknown Rx Fluconazole (Nf) [Diflucan TAB] 150 mg PO ONCE #1 tablet 06/21/20 Unknown Rx cephALEXin [Keflex] 500 mg PO Q8HR 7 Days #21 cap 06/21/20 Unknown Rx Albuterol Mdi (or & Nicu Only) 2 puff IH QID PRN #1 inhalation 09/03/20 Unknown Rx [ProAir HFA Inhaler] Azithromycin [Zithromax] 500 mg PO QDAY #5 tablet 09/03/20 Unknown Rx Benzonatate [Tessalon Perles] 100 mg PO Q8HR #20 capsule 09/03/20 Unknown Rx Ibuprofen [Motrin] 600 mg PO Q8H PRN #30 tablet 12/17/20 Unknown Rx Allergies Allergy/AdvReac Type Severity Reaction Status Date / Time No Known Allergies Allergy Verified 04/22/19 17:28 ED Review of Systems ROS: Stated complaint: BLOOD CLOT,PAIN,TYREE Other details as noted in HPI Constitutional: denies: chills, fever Eyes: denies: eye pain, eye discharge, vision change ENT: denies: ear pain, throat pain Respiratory: denies: cough, shortness of breath, wheezing Cardiovascular: denies: chest pain, palpitations Endocrine: no symptoms reported Gastrointestinal: denies: abdominal pain, nausea, diarrhea Genitourinary: denies: urgency, dysuria, discharge Musculoskeletal: arthralgia (right ring finger pain), other (right lower leg and hip pain). denies: back pain, joint swelling Skin: denies: rash, lesions Neurological: denies: headache, weakness, paresthesias Psychiatric: denies: anxiety, depression Hematological/Lymphatic: denies: easy bleeding, easy bruising ED Past Medical Hx - Past Medical History Previous Medical History?: Yes Hx Hypertension: No Hx Renal Disease: No Hx Seizures: Yes Hx Psychiatric Treatment: Yes (Anxiety) Hx Asthma: Yes Hx HIV: No Additional medical history: Constipation - Surgical History Past Surgical History?: Yes Additional Surgical History: R hand surgery/Right ring finger. - Social History Smoking Status: Current Every Day Smoker Substance Use Type: None - Medications Home Medications: Home Medications Medication Instructions Recorded Confirmed Last Taken Type HYDROcodone/APAP 5-325 [[place] 1 each PO Q6HR PRN #12 tablet 11/15/15 Unknown Rx 5/325] Sulfamethoxazole/Trimethoprim 1 each PO BID #20 tablet 11/15/15 Unknown Rx [Bactrim DS TAB] Phenazopyridine [Pyridium] 200 mg PO TID #6 tab 07/23/18 Unknown Rx Sulfamethoxazole/Trimethoprim 1 each PO BID #6 tablet 07/23/18 Unknown Rx [Bactrim DS TAB] raNITIdine HCl [Zantac] 150 mg PO BID #20 tablet 10/26/18 Unknown Rx HYDROcodone/APAP 5-325 [[place] 1 each PO Q4HR PRN #10 tablet 10/29/18 Unknown Rx 5/325] Azithromycin [Zithromax] 500 mg PO QDAY #5 tablet 08/31/19 Unknown Rx guaiFENesin/CODEINE [Robitussin AC] 5 ml PO Q6H PRN #120 ml 08/31/19 Unknown Rx Amoxicillin [Trimox CAP] 500 mg PO Q8H #30 capsule 03/22/20 Unknown Rx Ibuprofen [Motrin] 600 mg PO Q8H PRN #30 tablet 03/22/20 Unknown Rx Lidocaine Viscous 2% 10 ml PO Q6H PRN #120 ml 03/22/20 Unknown Rx predniSONE [Deltasone] 40 mg PO QDAY #10 tab 03/22/20 Unknown Rx Albuterol Mdi (or & Nicu Only) 2 puff IH QID PRN #1 inhalation 04/16/20 Unknown Rx [ProAir HFA Inhaler] Benzonatate [Tessalon Perles] 100 mg PO Q8HR #30 capsule 04/16/20 Unknown Rx Doxycycline Hyclate 100 mg PO Q12H #20 tablet. 04/16/20 Unknown Rx Ibuprofen [Motrin] 600 mg PO Q8H PRN #20 tablet 04/16/20 Unknown Rx predniSONE [Deltasone] 40 mg PO QDAY #12 tab 04/16/20 Unknown Rx Fluconazole (Nf) [Diflucan TAB] 150 mg PO ONCE #1 tablet 06/21/20 Unknown Rx cephALEXin [Keflex] 500 mg PO Q8HR 7 Days #21 cap 06/21/20 Unknown Rx Albuterol Mdi (or & Nicu Only) 2 puff IH QID PRN #1 inhalation 09/03/20 Unknown Rx [ProAir HFA Inhaler] Azithromycin [Zithromax] 500 mg PO QDAY #5 tablet 09/03/20 Unknown Rx Benzonatate [Tessalon Perles] 100 mg PO Q8HR #20 capsule 09/03/20 Unknown Rx Ibuprofen [Motrin] 600 mg PO Q8H PRN #30 tablet 12/17/20 Unknown Rx ED Physical Exam - General Limitations: No Limitations General appearance: alert, in no apparent distress, anxious - Head Head exam: Present: atraumatic, normocephalic, normal inspection - Eye Eye exam: Present: normal appearance, PERRL, EOMI Pupils: Present: normal accommodation - ENT ENT exam: Present: normal exam, normal orophraynx, mucous membranes moist, TM's normal bilaterally, normal external ear exam - Neck Neck exam: Present: normal inspection, full ROM - Respiratory Respiratory exam: Present: normal lung sounds bilaterally. Absent: respiratory distress, wheezes, rales, rhonchi, chest wall tenderness, accessory muscle use, decreased breath sounds - Cardiovascular Cardiovascular Exam: Present: normal rhythm, tachycardia, normal heart sounds. Absent: systolic murmur, diastolic murmur, rubs, gallop - GI/Abdominal GI/Abdominal exam: Present: soft, normal bowel sounds. Absent: tenderness, guarding, hyperactive bowel sounds, hypoactive bowel sounds - Extremities Exam Extremities exam: Present: normal inspection, full ROM, tenderness (Palpable mild right ring finger tenderness; palpable mild right lower leg and hip tenderness), normal capillary refill. Absent: pedal edema, calf tenderness - Back Exam Back exam: Present: normal inspection, full ROM. Absent: tenderness, CVA tenderness (R), CVA tenderness (L), muscle spasm, paraspinal tenderness, vertebral tenderness - Neurological Exam Neurological exam: Present: alert, oriented X3, CN II-XII intact, normal gait, reflexes normal - Psychiatric Psychiatric exam: Present: normal affect, normal mood, anxious - Skin Skin exam: Present: warm, dry, intact, normal color. Absent: rash ED Course Vital Signs 12/16/20 12/17/20 22:20 02:27 Temperature 98.6 F Pulse Rate 104 H Respiratory 16 18 Rate Blood Pressure 148/90 O2 Sat by Pulse 97 Oximetry ED Medical Decision Making - Lab Data Result diagrams: 12/17/20 01:37 12/17/20 01:37 - Radiology Data Radiology results: report reviewed, image reviewed [facility], [place] [address] [place] [address] XRay Report Signed Patient: CHARAN BROTHERS MR#: [id number] : 1990 Acct:[id number] Age/Sex: 30 / F ADM Date: 12/16/20 Loc: ED Attending Dr: Ordering Physician: MALINDA WADE Date of Service: 12/17/20 Procedure(s): XR finger(s) 2+V RT Accession Number(s): [id number] cc: MALINDA WADE Fluoro Time In Minutes: Right ring finger-3 views INDICATION: Right ring finger pain and swelling. COMPARISON: None. IMPRESSION: No acute osseous abnormality. Mild soft tissue swelling about the ring finger. No subcutaneous gas or soft tissue wound. Normal alignment. No significant DJD. Signer Name: Yandel Hernandez MD Signed: 12/17/2020 3:08 AM Workstation Name: [id number] Transcribed By: MARYANN Dictated By: Yandel Hernandez MD Electronically Authenticated By: Yandel Hernandez MD Signed Date/Time: 12/17/20307 DD/ 6 TD/TT: [facility], [place] [address] [place] [address] Vascular Lab Report Signed Patient: CHARAN BROTHERS MR#: [id number] : 1990 Acct:[id number] Age/Sex: 30 / F ADM Date: 12/16/20 Loc: ED Attending Dr: Ordering Physician: MALINDA WADE Date of Service: 12/17/20 Procedure(s): VL venous duplex LE RT Accession Number(s): [id number] cc: MALINDA WADE DUPLEX DOPPLER LOWER EXTREMITY VEINS, RIGHT INDICATION: Right leg bruises: Right pelvis ecchymosis, mass. TECHNIQUE: Duplex doppler imaging was performed through the veins of the right lower extremity using venous compression and other maneuvers. COMPARISON: No relevant prior imaging study available. FINDINGS: Right Common femoral vein: Negative. Right Superficial femoral vein: Negative. Right Popliteal vein: Negative. Right Calf veins: Negative. Additional findings: None.. IMPRESSION: 1. No sonographic evidence for DVT in the right lower extremity. Signer Name: Yandel Hernandez MD Signed: 12/17/2020 1:49 AM Workstation Name: [id number] Transcribed By: MARYANN Dictated By: Yandel Hernandez MD Electronically Authenticated By: Yandel Hernandez MD Signed Date/Time: 12/17/20148 DD/ 7 TD/TT: Print - Medical Decision Making This is a 30-year-old -[place] female with a history of anxiety who presents to the ED with complaints of persistent intermittent diffuse right lower leg bruises and mild pain for the last 1 month, worse in the last 1 week. Patient also complains of persistent distal right ring finger pain from an old injury and surgery over 1 year ago. Patient states that the bruises have been persistent in her right leg, right hip and right thigh with no known etiology. In the ED, patient is alert and oriented x3 and is not in any distress but anxious and tachycardic in triage. Lab test results were reviewed and are all nonactionable. Patient was treated for pain in the ED. Right lower leg Doppler ultrasound showed no sonographic evidence of DVT. Right ring finger x-ray showed no acute fractures or subluxation but mild soft tissue swelling. On re evaluation, patient's tachycardia resolved, patient felt better and was discharged home and was advised to follow-up with her primary care physician in 5 to 7 days for reevaluation or return to the ED immediately if symptoms get worse. - Differential Diagnosis DVT; muscle strain; muscle spasm; finger tendinitis; Critical care attestation.: If time is entered above; I have spent that time in minutes in the direct care of this critically ill patient, excluding procedure time. ED Disposition Clinical Impression: Strain of right ring finger Muscle strain of right lower extremity Qualifiers: Encounter type: initial encounter Qualified Code(s): S86.911A - Strain of unspecified muscle(s) and tendon(s) at lower leg level, right leg, initial encounter Traumatic ecchymosis of right lower leg Qualifiers: Encounter type: initial encounter Qualified Code(s): S80.11XA - Contusion of right lower leg, initial encounter Disposition: TO HOME OR SELFCARE Is pt being admited?: No Does the pt Need Aspirin: No Condition: Stable Instructions: Muscle Strain, [id number] Additional Instructions: The right lower leg Doppler ultrasound showed no sonographic evidence of DVT. Right ring finger x-ray showed no acute fractures or subluxations. Therefore take medications with food, drink plenty of fluids and follow-up with your primary care physician in 5 to 7 days for reevaluation. Return to the ED immediately if symptoms get worse. Prescriptions: Ibuprofen [Motrin] 600 mg PO Q8H PRN #30 tablet PRN Reason: Pain Referrals: [facility] [Provider Group] - 3-5 Days Time of Disposition: 03:41 Print Language: MOHAWK
== END 2020-12-17 04:32 | disposition home or self-care (01) ==
LOC: ED 21:28
DX: S86.911A Strain of unspecified muscle(s) and tendon(s) at lower leg level, right leg, initial encounter (principal); S56.415A Strain of extensor muscle, fascia and tendon of right ring finger at forearm level, initial encounter; F41.9 Anxiety disorder, unspecified; M25.551 Pain in right hip; F17.200 Nicotine dependence, unspecified, uncomplicated; Z79.899 Other long term (current) drug therapy; X58.XXXA Exposure to other specified factors, initial encounter; Y93.89 Activity, other specified; Y92.89 Other specified places as the place of occurrence of the external cause; Y99.8 Other external cause status
CPT/HCPCS: 36415; 80053; 84703; 85025; 85610; 85730; 99284

== ENCOUNTER 2020-12-28 14:34 | Emergency (ER) | payer MEDICAID ==
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
--- NOTE | 2020-12-28 21:04 | XRay Report ---
Bilateral wrist radiographs, 3 views of each wrist provided. COMPARISON: Injury COMPARISON: None FINDINGS: Right wrist: Tiny corticated ossific density noted at the ulnar aspect of the distal radius reflect s equela of prior trauma. There is no evidence of acute fracture. Carpal alignment is preserved. No foc al soft tissue abnormality. Left wrist: No evidence of fracture or malalignment. Soft tissues are unremarkable. IMPRESSION: No acute osseous abnormality of the wrists. Signer Name: Eric Mcwilliams MD Signed: 12/28/2020 8:59 PM Workstation Name: [id number]
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
[2020-12-29 08:01] VITALS: BP 166/80
== END 2020-12-29 00:50 | disposition home or self-care (01) ==
LOC: ED 14:34
DX: S60.212A Contusion of left wrist, initial encounter (principal); T74.11XA Adult physical abuse, confirmed, initial encounter; R56.9 Unspecified convulsions; F41.8 Other specified anxiety disorders; J45.909 Unspecified asthma, uncomplicated; K59.00 Constipation, unspecified; Y93.89 Activity, other specified; Y92.89 Other specified places as the place of occurrence of the external cause; Y99.8 Other external cause status
CPT/HCPCS: 99283